=== PATIENT | female | born 1940 | race Caucasian/White ===

== ENCOUNTER 2017-05-19 19:35 | Inpatient (IN) | payer MEDICARE ==
--- NOTE | 2017-05-19 20:17 | CP.PCM.HP ---
History of Present Illness - History of Present Illness History of Present Illness: 77 y/o female with PMH DM, HTN, dyslipidemia, irregular heart beat , overweight , chronic back pain , chronic constipation was diagnosed with acute ischemic stroke 05/16/17 at [facility] after being admitted with dizziness, unstable gait . Patient now transferred to acute rehab for physical therapy. She feels a little better but still dizzy especially with minimal movement or ambulation, feeling tired and is constipated (last BM 4 days ago ). Denies any CP, SOB, palpitations, OMD orthopnea urinary symptoms. Allergies ; PCN PMH ; DM, HTN, dyslipidemia, irregular heart beat , overweight , stroke,chronic back pain , chronic constipation Medications; Atorvastatin, eliquist , ASA , cardizem, Valsartan, meclizine, Linzest, amitiza Surgery ; appendectomy, partial colon resection for abscess, pancreas surgery, cataract surgery and glaucoma Family history ; Mother had HTn, DM lood clots in [place]-- 55 y/o sister had CAD with stents, gait instability, DM, HTN, Asthma -- 56 y/o Social history ; originally from [place] , lives in [place] with her , has 2 children, stopped smoking 6 years ago, denies ETOH use and drugs Code status; Full ROs ; 14 point revie wof system negative except above Present on Admission - Present on Admission Any Indicators Present on Admission: No Review of Systems - Review of Systems All systems: reviewed and no additional remarkable complaints except Past Patient History - Infectious Disease Hx of Infectious Diseases: None - Tetanus Immunizations Tetanus Immunization: Unknown - Past Medical History & Family History Past Medical History?: Yes - Past Social History Smoking Status: Former Smoker Alcohol: None Drugs: Denies Home Situation {Lives}: With Family Domestic Violence: Negative Meds Allergies/Adverse Reactions: Allergies Allergy/AdvReac Type Severity Reaction Status Date / Time Penicillins Allergy Severe SHORTNESS Verified 05/19/17 19:42 OF BREATH Physical Exam - Constitutional Appears: Non-toxic, No Acute Distress Additional comments: overweight - Head Exam Head Exam: ATRAUMATIC, NORMAL INSPECTION, NORMOCEPHALIC - Eye Exam Eye Exam: EOMI, Normal appearance, PERRL Pupil Exam: NORMAL ACCOMODATION - ENT Exam ENT Exam: Mucous Membranes Moist, Normal Exam - Neck Exam Neck exam: Positive for: Full Rom, Normal Inspection - Respiratory Exam Respiratory Exam: Clear to Auscultation Bilateral, NORMAL BREATHING PATTERN. absent: Rales, Rhonchi, Wheezes - Cardiovascular Exam Cardiovascular Exam: Irregular Rhythm, +S1, +S2. absent: JVD - GI/Abdominal Exam GI & Abdominal Exam: Normal Bowel Sounds, Soft. absent: Distended, Guarding, Rebound, Tenderness - Rectal Exam Rectal Exam: Deferred - Extremities Exam Extremities exam: Positive for: full ROM, normal capillary refill, normal inspection, pedal pulses present. Negative for: calf tenderness, joint swelling , pedal edema - Back Exam Back exam: NORMAL INSPECTION - Neurological Exam Neurological exam: Alert, CN II-XII Intact, Oriented x3, Reflexes Normal Additional comments: dizzy - Psychiatric Exam Psychiatric exam: Normal Affect, Normal Mood - Skin Skin Exam: Dry, Warm Assessment & Plan - Assessment and Plan (Free Text) Assessment: 77 y/o female with PMH DM, HTN, dyslipidemia, irregular heart beat , overweight , chronic back pain , chronic constipation was diagnosed with acute ischemic stroke 05/16/17 at [facility] after being admitted with dizziness, unstable gait . Patient now transferred to acute rehab for physical therapy. She feels a little better but still dizzy especially with minimal movement or ambulation, feeling tired and is constipated (last BM 4 days ago ). Denies any CP, SOB, palpitations, OMD orthopnea urinary symptoms. 1. Acute CVA Admit to acute rehab for PT patient feels dizzy and has unstable gait physiatry consult resume ASA, eliquist , Statin 2. DM diabetic diet, Accuchecks, insulin coverage check Hgb A1c 3.HTN on Valsartan 4. Irregular heart beat/ afib ? Check EKG continue cardizem PO on eliquist 5. Chronic constipation on colace, lactulose Family can bring Linzest 6. Chronic back pain pain management PRN 7. DVT & GI prophylaxis Protonox SCD on eliquist
[2017-05-19] MEDS: Insulin Lispro (humaLOG) 100 Units/ml Inj SC SCH (22:00)
[2017-05-19 23:26] VITALS: BMI 34.0
[2017-05-20] MEDS: Insulin Lispro (humaLOG) 100 Units/ml Inj SC SCH ×5 (07:07→22:30)
[2017-05-20 07:53] LABS: HEMATOCRIT 39.3 % (34.0-47.0); MEAN CELL VOLUME 89.8 fl (81.0-99.0); MEAN CORPUSCULAR HEMOGLOBIN 30.1 pg (27.0-31.0); MEAN CORPUSCULAR HGB CONC 33.6 g/dL (33.0-37.0); RED CELL DISTRIBUTION WIDTH 14.8 % (11.5-14.5); WHITE BLOOD COUNT 10.7 K/uL (4.8-10.8)
[2017-05-20 08:06] LABS: BLOOD UREA NITROGEN 18 mg/dl (7-17); CALCIUM 9.2 mg/dL (8.4-10.2); CARBON DIOXIDE 32 mmol/L (22-30); CHLORIDE 98 mmol/L (98-107); GFR AFRICAN-AMERICAN > 60; GLUCOSE,RANDOM 176 mg/dL (65-105); POTASSIUM 4.4 MMOL/L (3.6-5.0); SODIUM 138 mmol/l (132-148)
[2017-05-20] MEDS: Pantoprazole 40 mg EC Tab PO SCH (08:52)
--- NOTE | 2017-05-20 10:30 | PCM.OPOC ---
Physiatry Overall Plan of Care - Overall Plan of Care Estimated Length of Stay in Weeks: 2 Rehab Impairment: Mobility, Gait, Balance, Coordination Etiologic Diagnosis: Cerebrovascular Accident Rehab/Medical Prognosis: Fair - Anticipated Interventions Physical Therapy:: Yes Occupational Therapy:: Yes Speech Therapy:: Yes Recreational Therapy:: Yes - Therapy Goals Bed Mobility: Independent Ambulation: Independent Functional Positional Changes:: Independent - Functional Outcomes Functional Outcomes: good - Discharge Plan Identification of Barriers to Discharge: Home Situation Discharge Destination: Home
--- NOTE | 2017-05-20 10:32 | CP.PCM.CON ---
History of Present Illness - History of Present Illness History of Present Illness: 77 year old female admitted for acute rehab after suffering a ischemic stroke , with other PMH of DM, HTn,dyslipidemia and irregular heart beat Review of Systems - Musculoskeletal Musculoskeletal: Abnormal Gait - Neurological Neurological: Abnormal Gait, Dizziness, Weakness Past Patient History - Infectious Disease Hx of Infectious Diseases: None - Tetanus Immunizations Tetanus Immunization: Unknown - Past Medical History & Family History Past Medical History?: Yes - Past Social History Smoking Status: Former Smoker Alcohol: None Drugs: Denies Home Situation {Lives}: With Family Domestic Violence: Negative - CARDIAC Hx Cardiac Disorders: Yes ((Denies hx. of cardiac stent)) Hx Hypertension: Yes Other/Comment: - Irregular heart beat. - Dyslipidemia - PULMONARY Hx Respiratory Disorders: No (Denies hx. of Asthma or COPD) - NEUROLOGICAL Hx Neurological Disorder: Yes HX Cerebrovascular Accident: Yes (05/16/17: Acute Ischemic Stroke) - HEENT Hx Cataracts: Yes (Cataract surgery (left eye)) Hx Glaucoma: Yes - ENDOCRINE/METABOLIC Hx Diabetes Mellitus Type 2: Yes - HEMATOLOGICAL/ONCOLOGICAL Hx AIDS: No Hx Human Immunodeficiency Virus (HIV): No - MUSCULOSKELETAL/RHEUMATOLOGICAL Hx Back Pain: Yes (Chronic back pain) - GASTROINTESTINAL Hx Constipation: Yes (Chronic constipation) - PSYCHIATRIC Hx Substance Use: No - SURGICAL HISTORY Hx Appendectomy: Yes Hx Cataract Extraction: Yes (Cataract surgery (left eye)) Other/Comment: - Partial colon resection for abscess (per dgt: 2/3 instestine removed). - Surgery of the pancreas. - - ANESTHESIA Hx Anesthesia: Yes Hx Anesthesia Reactions: No Hx Malignant Hyperthermia: No Meds Allergies/Adverse Reactions: Allergies Allergy/AdvReac Type Severity Reaction Status Date / Time Penicillins Allergy Severe SWELLING Verified 05/20/17 08:00 - Medications Medications: Current Medications Acetaminophen (Tylenol 325mg Tab) 650 mg PO Q6 PRN PRN Reason: Fever >100.4 F Last Admin: 05/20/17 08:50 Dose: 650 mg Acetaminophen (Tylenol 325mg Tab) 650 mg PO Q6 PRN PRN Reason: Pain, Mild (1-3) Apixaban (Eliquis) 5 mg PO BID [facility] PRN Reason: Protocol Last Admin: 05/20/17 08:52 Dose: 5 mg Aspirin (Aspirin Chewable) 81 mg PO DAILY [facility] Last Admin: 05/20/17 08:52 Dose: 81 mg Atorvastatin Calcium (Lipitor) 40 mg PO HS [facility] Last Admin: 05/19/17 22:31 Dose: Not Given Diltiazem HCl (Cardizem) 120 mg PO DAILY [facility] Last Admin: 05/20/17 09:54 Dose: Not Given Docusate Sodium (Colace) 100 mg PO BID PRN PRN Reason: Constipation Last Admin: 05/20/17 08:52 Dose: 100 mg Insulin Human Lispro (Humalog) 0 units SC [facility] PRN Reason: Protocol Last Admin: 05/20/17 07:07 Dose: 1 unit Lactulose (Enulose) 20 gm PO DAILY PRN PRN Reason: Constipation Meclizine HCl (Antivert) 25 mg PO BID [facility] Last Admin: 05/20/17 09:54 Dose: 25 mg Pantoprazole Sodium (Protonix Ec Tab) 40 mg PO DAILY [facility] Last Admin: 05/20/17 08:52 Dose: 40 mg Valsartan (Diovan) 320 mg PO DAILY [facility] Last Admin: 05/20/17 08:52 Dose: Not Given Physical Exam - Head Exam Head Exam: ATRAUMATIC, NORMAL INSPECTION, NORMOCEPHALIC - Eye Exam Eye Exam: EOMI, Normal appearance Pupil Exam: NORMAL ACCOMODATION, PERRL - ENT Exam ENT Exam: Mucous Membranes Moist, Normal Exam - Neck Exam Neck exam: Positive for: Normal Inspection - Respiratory Exam Respiratory Exam: Clear to Auscultation Bilateral, NORMAL BREATHING PATTERN - Cardiovascular Exam Cardiovascular Exam: REGULAR RHYTHM - GI/Abdominal Exam GI & Abdominal Exam: Normal Bowel Sounds - Rectal Exam Rectal Exam: NORMAL INSPECTION - Exam External exam: NORMAL EXTERNAL EXAM - Extremities Exam Extremities exam: Positive for: normal inspection Additional comments: problems with balance and gait anf coordination - Back Exam Back exam: NORMAL INSPECTION - Neurological Exam Neurological exam: Alert - Psychiatric Exam Psychiatric exam: Normal Affect, Normal Mood - Skin Skin Exam: Dry, Normal Color Results - Vital Signs Recent Vital Signs: Last Vital Signs Temp 97.5 F L 05/20/17 09:01 Pulse 120 H 05/20/17 09:01 Resp 20 05/20/17 09:01 BP 150/65 05/20/17 09:01 Pulse Ox 95 05/20/17 09:01 - Labs Result Diagrams: 05/20/17 07:00 05/20/17 07:00 Labs: Laboratory Results - last 24 hr 05/19/17 05/20/17 05/20/17 21:10 06:38 07:00 WBC 10.7 RBC 4.38 Hgb 13.2 Hct 39.3 MCV 89.8 MCH 30.1 MCHC 33.6 RDW 14.8 H Plt Count 154 Sodium Potassium Chloride Carbon Dioxide Anion Gap BUN Creatinine Est GFR ( Amer) Est GFR (Non-Af Amer) POC Glucose (mg/dL) 169 H 183 H Random Glucose Calcium 05/20/17 07:00 WBC RBC Hgb Hct MCV MCH MCHC RDW Plt Count Sodium 138 Potassium 4.4 Chloride 98 Carbon Dioxide 32 H Anion Gap 12 BUN 18 H Creatinine 1.0 Est GFR ( Amer) > 60 Est GFR (Non-Af Amer) 54 POC Glucose (mg/dL) Random Glucose 176 H Calcium 9.2 Assessment & Plan - Assessment and Plan (Free Text) Assessment: Problems of Cerebrovascular accident with PMH of DM, HT, Dyslipidemia and irregular heart beat. Plan for physical, occupational, rec and speech therapy. Goals to work on balance, strength, coordination. Goals for Modified independent Overall plan of care written. Covering for Dr. Marie
[2017-05-21] MEDS: Insulin Lispro (humaLOG) 100 Units/ml Inj SC SCH ×4 (07:36→22:05)
[2017-05-21] MEDS: Pantoprazole 40 mg EC Tab PO SCH (09:15)
[2017-05-21] MEDS: Bisacodyl 5mg EC Tab PO SCH (14:13)
[2017-05-22] MEDS: Insulin Lispro (humaLOG) 100 Units/ml Inj SC SCH ×4 (07:29→21:39)
[2017-05-22] MEDS: Bisacodyl 5mg EC Tab PO SCH (08:41)
[2017-05-22] MEDS: Pantoprazole 40 mg EC Tab PO SCH (08:41)
--- NOTE | 2017-05-22 12:22 | CP.PCM.PN ---
Subjective - Date & Time of Evaluation Date of Evaluation: 05/22/17 Time of Evaluation: 09:30 - Subjective Subjective: Patient was seen and examined at bedside. She is complaining of right sided intermittent headache when she wakes up in the morning. She says that Tylenol does improve the pain somewhat. It improves over the course of the day. She states she feels better but is still feeling dizzy with ambulation or with physical therapy. Her constipation has improved. Denies any chest pain, sob, palpitations today. Objective - Vital Signs/Intake and Output Vital Signs (last 24 hours): Temp Pulse Resp BP Pulse Ox 97.9 F 79 20 142/60 98 05/22/17 07:45 05/22/17 07:45 05/22/17 07:45 05/22/17 07:45 05/22/17 07:45 - Medications Medications: Current Medications Acetaminophen (Tylenol 325mg Tab) 650 mg PO Q6 PRN PRN Reason: Fever >100.4 F Last Admin: 05/20/17 08:50 Dose: 650 mg Acetaminophen (Tylenol 325mg Tab) 650 mg PO Q6 PRN PRN Reason: PAIN LEVEL 1-10 Last Admin: 05/22/17 08:40 Dose: 650 mg Apixaban (Eliquis) 5 mg PO BID [facility] PRN Reason: Protocol Last Admin: 05/22/17 08:41 Dose: 5 mg Aspirin (Aspirin Chewable) 81 mg PO DAILY [facility] Last Admin: 05/22/17 08:41 Dose: 81 mg Atorvastatin Calcium (Lipitor) 40 mg PO HS [facility] Last Admin: 05/21/17 21:00 Dose: 40 mg Bisacodyl (Dulcolax) 5 mg PO DAILY [facility] Last Admin: 05/22/17 08:41 Dose: 5 mg Diltiazem HCl (Cardizem) 120 mg PO DAILY [facility] Last Admin: 05/22/17 08:41 Dose: 120 mg Docusate Sodium (Colace) 100 mg PO BID PRN PRN Reason: Constipation Last Admin: 05/20/17 08:52 Dose: 100 mg Insulin Human Lispro (Humalog) 0 units SC [facility] PRN Reason: Protocol Last Admin: 05/22/17 11:58 Dose: 1 unit Lactulose (Enulose) 20 gm PO DAILY PRN PRN Reason: Constipation Last Admin: 05/21/17 09:14 Dose: 20 gm Meclizine HCl (Antivert) 25 mg PO BID [facility] Last Admin: 05/22/17 08:41 Dose: 25 mg Pantoprazole Sodium (Protonix Ec Tab) 40 mg PO DAILY [facility] Last Admin: 05/22/17 08:41 Dose: 40 mg Valsartan (Diovan) 320 mg PO DAILY [facility] Last Admin: 05/22/17 08:41 Dose: 320 mg - Labs Labs: 05/20/17 07:00 05/20/17 07:00 - Additional Findings Additional findings: Physical exam: Constitutional- cooperative, awake, alert. Head- NCAT, PERRL Eye- PERRL, normal accommodation ENT- normal exam, MMM. Neck- normal inspection, supple, no JVD Respiratory- CTAB, no wheezes rales rhonchi Cardiovascular- RRR, +S1, +S2 no MRG GI/Abdominal- normal bowel sounds, soft, no mass, no hsm Skin- warm, dry Extremities Exam- normal capillary refill, normal inspection Neurological Exam- alert, stable gait Psych- normal mood, normal affect Assessment and Plan - Assessment and Plan (Free Text) Plan: Assessment: 77 y/o female with PMH DM, HTN, dyslipidemia, irregular heart beat , overweight , chronic back pain , chronic constipation was diagnosed with acute ischemic stroke 05/16/17 at [facility] after being admitted with dizziness, unstable gait . Patient now transferred to acute rehab for physical therapy. Doing better overall today. Denies any CP, SOB, palpitations, OMD orthopnea urinary symptoms. 1. Acute CVA Admit to acute rehab for PT patient feels dizzy and has unstable gait physiatry consult resume ASA, eliquist , Statin 2. Bilateral carotid stenosis -- continue anticoagulation , ASa and statin patient to follow up after discharge for possible end arterectomy 3. DM diabetic diet, Accuchecks, insulin coverage check Hgb A1c 4.HTN on Valsartan Cardizem 5. 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 Chronic constipation- improved, patient had good BM 05/21 - Colace 100 mg po BID PRN - Lactulose PRN 7. Chronic back pain pain management PRN 8. DVT & GI prophylaxis Protonox SCD on eliquist
--- NOTE | 2017-05-22 12:32 | CARD ---
APPROVED REPORT EKG Measurement Heart [id number] <Conclusion> Atrial fibrillation with rapid ventricular response Anterior infarct, age undetermined Abnormal ECG
--- NOTE | 2017-05-22 14:39 | CP.PCM.PN ---
Subjective - Date & Time of Evaluation Date of Evaluation: 05/20/17 Time of Evaluation: 17:00 - Subjective Subjective: no acute complaints of pain Objective - Vital Signs/Intake and Output Vital Signs (last 24 hours): Temp Pulse Resp BP Pulse Ox 97.9 F 79 20 142/60 98 05/22/17 07:45 05/22/17 07:45 05/22/17 07:45 05/22/17 07:45 05/22/17 07:45 - Medications Medications: Current Medications Acetaminophen (Tylenol 325mg Tab) 650 mg PO Q6 PRN PRN Reason: Fever >100.4 F Last Admin: 05/20/17 08:50 Dose: 650 mg Acetaminophen (Tylenol 325mg Tab) 650 mg PO Q6 PRN PRN Reason: PAIN LEVEL 1-10 Last Admin: 05/22/17 08:40 Dose: 650 mg Apixaban (Eliquis) 5 mg PO BID [facility] PRN Reason: Protocol Last Admin: 05/22/17 08:41 Dose: 5 mg Aspirin (Aspirin Chewable) 81 mg PO DAILY [facility] Last Admin: 05/22/17 08:41 Dose: 81 mg Atorvastatin Calcium (Lipitor) 40 mg PO HS [facility] Last Admin: 05/21/17 21:00 Dose: 40 mg Bisacodyl (Dulcolax) 5 mg PO DAILY [facility] Last Admin: 05/22/17 08:41 Dose: 5 mg Diltiazem HCl (Cardizem) 120 mg PO DAILY [facility] Last Admin: 05/22/17 08:41 Dose: 120 mg Docusate Sodium (Colace) 100 mg PO BID PRN PRN Reason: Constipation Last Admin: 05/20/17 08:52 Dose: 100 mg Insulin Human Lispro (Humalog) 0 units SC [facility] PRN Reason: Protocol Last Admin: 05/22/17 11:58 Dose: 1 unit Lactulose (Enulose) 20 gm PO DAILY PRN PRN Reason: Constipation Last Admin: 05/21/17 09:14 Dose: 20 gm Meclizine HCl (Antivert) 25 mg PO BID [facility] Last Admin: 05/22/17 08:41 Dose: 25 mg Pantoprazole Sodium (Protonix Ec Tab) 40 mg PO DAILY [facility] Last Admin: 05/22/17 08:41 Dose: 40 mg Valsartan (Diovan) 320 mg PO DAILY [facility] Last Admin: 05/22/17 08:41 Dose: 320 mg - Labs Labs: 05/20/17 07:00 05/20/17 07:00 - Head Exam Head Exam: ATRAUMATIC, NORMAL INSPECTION, NORMOCEPHALIC - Eye Exam Eye Exam: EOMI, Normal appearance, PERRL Pupil Exam: NORMAL ACCOMODATION - ENT Exam ENT Exam: Mucous Membranes Moist, Normal Exam - Neck Exam Neck Exam: Normal Inspection - Respiratory Exam Respiratory Exam: NORMAL BREATHING PATTERN - Cardiovascular Exam Cardiovascular Exam: REGULAR RHYTHM - GI/Abdominal Exam GI & Abdominal Exam: Normal Bowel Sounds - Rectal Exam Rectal Exam: NORMAL INSPECTION - Exam External exam: NORMAL EXTERNAL EXAM - Extremities Exam Extremities Exam: Full ROM, Normal Capillary Refill - Back Exam Back Exam: NORMAL INSPECTION - Neurological Exam Neurological Exam: Alert, Awake Neuro motor strength exam: Left Upper Extremity: 3, Right Upper Extremity: 3, Left Lower Extremity: 3, Right Lower Extremity: 3 - Psychiatric Exam Psychiatric exam: Normal Affect, Normal Mood - Skin Skin Exam: Dry, Normal Color Assessment and Plan (1) CVA (cerebral vascular accident) Assessment & Plan: plan for pt, ot ,rec and speech therapy covering for Dr pacheco Status: Acute
--- NOTE | 2017-05-22 14:41 | CP.PCM.PN ---
Subjective - Date & Time of Evaluation Date of Evaluation: 05/22/17 Time of Evaluation: 14:00 - Subjective Subjective: no acute complaints getting therapy Objective - Vital Signs/Intake and Output Vital Signs (last 24 hours): Temp Pulse Resp BP Pulse Ox 97.9 F 79 20 142/60 98 05/22/17 07:45 05/22/17 07:45 05/22/17 07:45 05/22/17 07:45 05/22/17 07:45 - Medications Medications: Current Medications Acetaminophen (Tylenol 325mg Tab) 650 mg PO Q6 PRN PRN Reason: Fever >100.4 F Last Admin: 05/20/17 08:50 Dose: 650 mg Acetaminophen (Tylenol 325mg Tab) 650 mg PO Q6 PRN PRN Reason: PAIN LEVEL 1-10 Last Admin: 05/22/17 08:40 Dose: 650 mg Apixaban (Eliquis) 5 mg PO BID [facility] PRN Reason: Protocol Last Admin: 05/22/17 08:41 Dose: 5 mg Aspirin (Aspirin Chewable) 81 mg PO DAILY [facility] Last Admin: 05/22/17 08:41 Dose: 81 mg Atorvastatin Calcium (Lipitor) 40 mg PO HS [facility] Last Admin: 05/21/17 21:00 Dose: 40 mg Bisacodyl (Dulcolax) 5 mg PO DAILY [facility] Last Admin: 05/22/17 08:41 Dose: 5 mg Diltiazem HCl (Cardizem) 120 mg PO DAILY [facility] Last Admin: 05/22/17 08:41 Dose: 120 mg Docusate Sodium (Colace) 100 mg PO BID PRN PRN Reason: Constipation Last Admin: 05/20/17 08:52 Dose: 100 mg Insulin Human Lispro (Humalog) 0 units SC [facility] PRN Reason: Protocol Last Admin: 05/22/17 11:58 Dose: 1 unit Lactulose (Enulose) 20 gm PO DAILY PRN PRN Reason: Constipation Last Admin: 05/21/17 09:14 Dose: 20 gm Meclizine HCl (Antivert) 25 mg PO BID [facility] Last Admin: 05/22/17 08:41 Dose: 25 mg Pantoprazole Sodium (Protonix Ec Tab) 40 mg PO DAILY [facility] Last Admin: 05/22/17 08:41 Dose: 40 mg Valsartan (Diovan) 320 mg PO DAILY [facility] Last Admin: 05/22/17 08:41 Dose: 320 mg - Labs Labs: 05/20/17 07:00 05/20/17 07:00 - Head Exam Head Exam: ATRAUMATIC, NORMAL INSPECTION, NORMOCEPHALIC - Eye Exam Eye Exam: EOMI, Normal appearance, PERRL Pupil Exam: NORMAL ACCOMODATION - ENT Exam ENT Exam: Mucous Membranes Moist, Normal Exam - Neck Exam Neck Exam: Normal Inspection - Respiratory Exam Respiratory Exam: NORMAL BREATHING PATTERN - Cardiovascular Exam Cardiovascular Exam: REGULAR RHYTHM - GI/Abdominal Exam GI & Abdominal Exam: Soft, Normal Bowel Sounds - Rectal Exam Rectal Exam: NORMAL INSPECTION - Exam External exam: NORMAL EXTERNAL EXAM - Extremities Exam Extremities Exam: Full ROM, Normal Capillary Refill - Back Exam Back Exam: NORMAL INSPECTION - Neurological Exam Neurological Exam: Alert, Awake Neuro motor strength exam: Left Upper Extremity: 3, Right Upper Extremity: 3, Left Lower Extremity: 3, Right Lower Extremity: 3 Additional comments: problems with balance and coordination - Psychiatric Exam Psychiatric exam: Normal Affect, Normal Mood - Skin Skin Exam: Dry, Intact Assessment and Plan (1) CVA (cerebral vascular accident) Assessment & Plan: pt, ot, rec therpy coveing for Dr pacheco to do team conference on patient Status: Acute
[2017-05-23] MEDS: Insulin Lispro (humaLOG) 100 Units/ml Inj SC SCH ×4 (07:04→21:55)
[2017-05-23] MEDS: Pantoprazole 40 mg EC Tab PO SCH (08:48)
[2017-05-23] MEDS: Bisacodyl 5mg EC Tab PO SCH (08:48)
[2017-05-23] MEDS ORDERED: Apap-Butalbital-Caffeine 325-50-40mg Tab PO PRN (11:40)
[2017-05-23] MEDS ORDERED: Lidocaine 2% GEL TOP PRN (11:50)
--- NOTE | 2017-05-23 14:13 | US ---
PROCEDURE: Right lower extremity venous duplex Doppler. HISTORY: r/o dvt COMPARISON: None available. TECHNIQUE: Common femoral, superficial femoral, popliteal and posterior tibial veins were evaluated. Flow was assessed with color Doppler, compressibility, assessment of phasic flow and augmentation response. FINDINGS: COMMON FEMORAL VEIN: Unremarkable. SUPERFICIAL FEMORAL VEIN: Unremarkable. POPLITEAL VEIN: Unremarkable. POSTERIOR TIBIAL VEIN: Unremarkable. OTHER FINDINGS: Unremarkable saphenous vein. IMPRESSION: No evidence of deep venous thrombosis in the right lower extremity.
[2017-05-23] MEDS: AMITIZA 24 MCG PO SCH (17:04)
[2017-05-24] MEDS: Insulin Lispro (humaLOG) 100 Units/ml Inj SC SCH ×4 (07:02→22:32)
[2017-05-24] MEDS: Bisacodyl 5mg EC Tab PO SCH (08:06)
[2017-05-24] MEDS: Pantoprazole 40 mg EC Tab PO SCH (08:06)
[2017-05-24] MEDS: AMITIZA 24 MCG PO SCH ×2 (08:06→16:52)
--- NOTE | 2017-05-24 09:03 | PSY.TMCNF ---
Nursing - Vital Signs Vital Signs (Last 8 hours): Vital Signs 05/24/17 05/24/17 08:04 08:57 Temperature 97.7 F 97.2 F L Pulse Rate 89 90 Respiratory 18 19 Rate Blood Pressure 163/84 H 163/84 H O2 Sat by Pulse 100 95 Oximetry Pain: 0 - Medications/Other Issues Comment: Pt at moderate nutritional risk. goals: 1. Consume 75-100% at mealtimes. 2. Maintain good glycemic control:GLU:70-180mg/dl. Follow-up due on 05/27/2017 - Bladder Management Bladder Pattern: Normal Voiding Method: Bedpan - Bowel Management Bowel Pattern: Constipated - Goals/Time Frame Comments: Pt was seen awake and alert laying in bed. Pt agreeable to visit. Pt' s prefered language is gabonese; however, pt can understand and speak slovenian to answer questions. Pt was able to identify her leisure tasks such as watching television, cooking, cleaning, and enjoys playing bingo. Pt reported that before her was ill, she would play bingo. Pt stated that she does not have much leisure tasks because she cares for her who is ill at home. Pt stated that she will participate in leisure tasks when encouraged. Physical Therapy - Bed Mobility Bed Mobility: Moderate Assistance - Transfers Wheelchair to Mat: Moderate Assistance Sit to Stand: Moderate Assistance Comment: RW - Ambulation Level of Assistance: Minimal Assistance Distance (ft.): 12 Assistive Devices: Rolling Walker - Stair Negotiation Stairs: Level of Assistance: Not Tested - Standing Balance Static Stand: Moderate Assistance Dynamic Stand: Maximal Assistance - Pain Pain (assessed during therapy session): 0 Management Techniques: Medication Comment: pt denies pain - Insight/Carryover Insight/Carryover: Fair - Patient/Family Education Comment: therapy schedule, therapy goals, safety, POC, use of call syed, stroke recovery - Assessment/Plan Assessment: Pt is agreeable to participate in recreation therapy sessions. Pt's participation is limited by fatigue and decrease leisure interest. Pt would benefit from recreation therapy to improve leisure awareness level, attention to task, and diversion to decrease anxiety level. Pt enjoys watching gabonese movies during her free time. - Goals Timeframe: 7 days Goals: min A with bed/mat mobility. min A with transfers with RW. ambulate min A with RW x 50 feet. mod A to negotiate 3 4inch steps with B rails - Provider License Number: [id number] Occupational Therapy - Arousal/Attention/Orientation Patient Orientation: Person, Place, Time, Appropriate to Age, Appropriate to Situation - ADL/IADL Self Feeding: Set-up Help Grooming: Verbal Cues, Set-up Help, Minimal Assistance Bathing-Upper Extremity: Verbal Cues, Set-up Help, Minimal Assistance Bathing-Lower Extremity: Verbal Cues, Set-up Help, Moderate Assistance Dressing-Upper Extremity: Supervision, Verbal Cues, Set-up Help Dressing-Lower Extremity: Verbal Cues, Set-up Help, Moderate Assistance - Sitting Balance Static Sitting: Supervision Dynamic Sitting: Reaches across midline, Reaches out of base of support, Reaches within base of support, Minimal Assistance Comment: seated unsupported at edge of bed - Transfers Wheelchair to Bed Transfers: Verbal Cues, Set-up Help, Minimal Assistance, Moderate Assistance Toilet Transfers: Verbal Cues, Set-up Help, Minimal Assistance, Moderate Assistance Comment: shower transfers: min/mod assist and verbal cues - Wheelchair Management Level of Assistance: Verbal Cues, Set-up Help, Minimal Assistance Distance (ft.): 20 - Upper Extremity Status Right Upper Extremity Comment: AROM in BUEs is WFLS Left Upper Extremity Comment: AROM is WFLS un BUES - Pain Pain (assessed during therapy session): 0 Alleviating Techniques: Medication Comment: pt denies pain - Insight/Carryover Insight/Carryover: Fair - Patient/Family Education Comment: therapy schedule, therapy goals, safety, POC, use of call syed, stroke recovery - Assessment/Plan Assessment: Pt is agreeable to participate in recreation therapy sessions. Pt's participation is limited by fatigue and decrease leisure interest. Pt would benefit from recreation therapy to improve leisure awareness level, attention to task, and diversion to decrease anxiety level. Pt enjoys watching gabonese movies during her free time. - Goals Timeframe: 7 days Goals: min A with bed/mat mobility. min A with transfers with RW. ambulate min A with RW x 50 feet. mod A to negotiate 3 4inch steps with Jacqueline adam - Provider Therapist: LETI Byers/L License Number: [id number] Speech Therapy - Consult Information Patient on Program: Yes Medical Diagnosis: CVA Treatment Diagnosis: cognitive-linguistic deficits - Assessment Memory Impairment: Mild - Plan Assessment: Pt is agreeable to participate in recreation therapy sessions. Pt's participation is limited by fatigue and decrease leisure interest. Pt would benefit from recreation therapy to improve leisure awareness level, attention to task, and diversion to decrease anxiety level. Pt enjoys watching gabonese movies during her free time. Plan: Continue Speech/Language Therapy - Provider Therapist: Aster Villalta License Number: [id number] Recreational Therapy - Participation Participation: Monitors His/Her Own Leisure Time - Attendance Attendance: Daily - Activities Leisure Activities: Television - Socialization Level of Socialization: Initiates/interacts freely with care givers and peer - Diversional Time Diversional Time: television and movies in Armenian - Assessment Assessment/Plan: Pt is agreeable to participate in recreation therapy sessions. Pt's participation is limited by fatigue and decrease leisure interest. Pt would benefit from recreation therapy to improve leisure awareness level, attention to task, and diversion to decrease anxiety level. Pt enjoys watching gabonese movies during her free time. Problems Currently Limiting Participation: decrease leisure awareness level, decrease arousal level, language barrier, anxiety Goals and Time Frame: Pt will be encouraged to participate in 1:1 and group recreation therapy sessions 3-5x week to improve attention to task, arousal level, leisure awareness level, and diversion to decrease anxiety level. - Provider Therapist: Katie Polanco, [employer] #[id number] Nutrition - Current Diet Current Diet/ Supplement/ Feedings: Low consistent CHO heart healthy diet - Appetite Percent Meal Consumed: 50-74% - Assessment/Goals/Time Frame Assessment/Goals/Time Frame: Pt at moderate nutritional risk. goals: 1. Consume 75-100% at mealtimes. 2. Maintain good glycemic control:GLU:70-180mg/ dl. Follow-up due on 05/27/2017 - Provider Provider: Elizabeth Hughes RD Case Management - Discharge Plan Discharge Plan: Home with significant other/family Rehabilitation Plan - Treatment Plan Treatment Plan: Physical Therapy, Occupational Therapy, Speech, Dietary, Patient /Family Education - Recommendation Recommendation: Physical Therapy, Occupational Therapy, Speech, Dietary, Patient /Family Education - Discharge Plan Discharge to: Home
[2017-05-24] MEDS: Acyclovir 5% OINT 15 APPLIC/15 GM EXT SCH ×5 (10:35→22:31)
--- NOTE | 2017-05-24 11:16 | PN ---
PHYSIATRY PROGRESS NOTED DATE: SUBJECTIVE: The patient is feeling fine. No acute complaints. Some problems with itching and rash because of shingles. No acute other complaints at present. PHYSICAL EXAMINATION: VITAL SIGNS: Vitals are stable. NECK: Supple. CHEST: Symmetrical. HEART: Sounds S1 and S2. ABDOMEN: Abdominal area is benign. EXTREMITIES: No clubbing, cyanosis or edema. IMPRESSION: Acute cerebrovascular accident, diabetes, hypertension, chronic obstructive pulmonary disease, asthma. Plan for physical therapy, occupational, recreational and speech therapy. Treatment for the shingles for the skin. Monitor the rash. To consider isolation. Status post team conference for the patient. Covering for Dr. Marie. Benson Lazar MD
--- NOTE | 2017-05-24 12:02 | CP.PCM.PN ---
Subjective - Date & Time of Evaluation Date of Evaluation: 05/24/17 Time of Evaluation: 14:30 - Subjective Subjective: Patient seen and examined . Feeling better but still with dizziness AGOSTO to right side of the head on and off . Participating with PT. Hemodynamically stable, afebrile Objective - Vital Signs/Intake and Output Vital Signs (last 24 hours): Temp Pulse Resp BP Pulse Ox 97.2 F L 90 18 163/84 H 95 05/24/17 10:14 05/24/17 10:14 05/24/17 10:14 05/24/17 10:14 05/24/17 08:57 - Medications Medications: Current Medications Acetaminophen (Tylenol 325mg Tab) 650 mg PO Q6 PRN PRN Reason: Fever >100.4 F Last Admin: 05/20/17 08:50 Dose: 650 mg Acetaminophen (Tylenol 325mg Tab) 650 mg PO Q6 PRN PRN Reason: PAIN LEVEL 1-10 Last Admin: 05/23/17 11:10 Dose: 650 mg Acetaminophen/Butalbital/Caffeine (Fioricet) 1 tab PO Q4 PRN PRN Reason: Headache Acyclovir (Zovirax) 800 mg PO 5XD FADI PRN Reason: Protocol Last Admin: 05/24/17 08:06 Dose: 800 mg Acyclovir (Zovirax 5% Oint) 1 applic EXT Q3 [facility] Last Admin: 05/24/17 10:35 Dose: 1 applic Apixaban (Eliquis) 5 mg PO BID [facility] PRN Reason: Protocol Last Admin: 05/24/17 08:06 Dose: 5 mg Aspirin (Aspirin Chewable) 81 mg PO DAILY [facility] Last Admin: 05/24/17 08:06 Dose: 81 mg Atorvastatin Calcium (Lipitor) 40 mg PO HS [facility] Last Admin: 05/23/17 21:54 Dose: 40 mg Bisacodyl (Dulcolax) 5 mg PO DAILY [facility] Last Admin: 05/24/17 08:06 Dose: 5 mg Diltiazem HCl (Cardizem) 120 mg PO DAILY [facility] Last Admin: 05/24/17 08:06 Dose: 120 mg Docusate Sodium (Colace) 100 mg PO BID PRN PRN Reason: Constipation Last Admin: 05/23/17 16:41 Dose: 100 mg Home Med (Amitiza) 24 mcg PO BID [facility] Last Admin: 05/24/17 08:06 Dose: 24 mcg Insulin Human Lispro (Humalog) 0 units SC ACHS [facility] PRN Reason: Protocol Last Admin: 05/24/17 07:02 Dose: 1 unit Lactulose (Enulose) 20 gm PO DAILY PRN PRN Reason: Constipation Last Admin: 05/21/17 09:14 Dose: 20 gm Lidocaine HCl (Xylocaine 2%) 1 applic TOP BID PRN PRN Reason: Pain, moderate (4-7) Meclizine HCl (Antivert) 25 mg PO BID [facility] Last Admin: 05/24/17 08:06 Dose: 25 mg Pantoprazole Sodium (Protonix Ec Tab) 40 mg PO DAILY [facility] Last Admin: 05/24/17 08:06 Dose: 40 mg Temazepam (Restoril) 15 mg PO HS PRN PRN Reason: Insomnia Last Admin: 05/23/17 21:54 Dose: 15 mg Valsartan (Diovan) 320 mg PO DAILY [facility] Last Admin: 05/24/17 08:06 Dose: 320 mg - Labs Labs: 05/20/17 07:00 05/20/17 07:00 - Constitutional Appears: Non-toxic, No Acute Distress - Head Exam Head Exam: ATRAUMATIC, NORMAL INSPECTION, NORMOCEPHALIC - Eye Exam Eye Exam: EOMI, Normal appearance, PERRL Pupil Exam: NORMAL ACCOMODATION - ENT Exam ENT Exam: Mucous Membranes Moist, Normal Exam - Neck Exam Neck Exam: Full ROM, Normal Inspection - Respiratory Exam Respiratory Exam: Clear to Ausculation Bilateral, NORMAL BREATHING PATTERN. absent: Rales, Rhonchi, Wheezes - Cardiovascular Exam Cardiovascular Exam: REGULAR RHYTHM, RRR, +S1, +S2. absent: JVD - GI/Abdominal Exam GI & Abdominal Exam: Soft, Normal Bowel Sounds. absent: Distended, Guarding, Tenderness, Rebound - Rectal Exam Rectal Exam: Deferred - Extremities Exam Extremities Exam: Full ROM, Normal Capillary Refill, Normal Inspection. absent : Pedal Edema - Back Exam Back Exam: NORMAL INSPECTION - Neurological Exam Neurological Exam: Alert, Awake, CN II-XII Intact, Oriented x3 - Psychiatric Exam Psychiatric exam: Normal Affect, Normal Mood - Skin Skin Exam: Dry, Intact, Normal Color, Warm Assessment and Plan - Assessment and Plan (Free Text) Assessment: 77 y/o female with PMH DM, HTN, dyslipidemia, irregular heart beat , overweight , chronic back pain , chronic constipation was diagnosed with acute ischemic stroke 05/16/17 at [facility] after being admitted with dizziness, unstable gait.Patient now transferred to acute rehab for physical therapy. Doing better overall but still dizzy. Participating with PT. 1.Acute CVA Admit to acute rehab for PT patient feels dizzy and has unstable gait physiatry consult appreciated on ASA, eliquist , Statin meclizine for dizziness 2. Bilateral carotid stenosis 70 % continue anticoagulation , ASa and statin patient to follow up after discharge for possible end arterectomy 3. DM diabetic diet, Accuchecks, insulin coverage check Hgb A1c start metformin 500 mg po bid 4.HTN on Valsartan and Cardizem 5. 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 Chronic constipation on Amnitiza ,Colace 100 mg po BID PRN and Lactulose PRN 7. Chronic back pain pain management PRN 8. Shingles on Zovirax Po for 5 days contact isolation 9. DVT & GI prophylaxis Protonix SCD on eliquist
[2017-05-25] MEDS: Acyclovir 5% OINT 15 APPLIC/15 GM EXT SCH ×8 (01:03→21:50)
[2017-05-25] MEDS: Insulin Lispro (humaLOG) 100 Units/ml Inj SC SCH ×4 (07:02→22:04)
[2017-05-25] MEDS: AMITIZA 24 MCG PO SCH ×2 (08:08→17:02)
[2017-05-25] MEDS: Pantoprazole 40 mg EC Tab PO SCH (08:10)
[2017-05-25] MEDS: Bisacodyl 5mg EC Tab PO SCH (08:11)
[2017-05-26] MEDS: Acyclovir 5% OINT 15 APPLIC/15 GM EXT SCH ×8 (00:17→21:49)
[2017-05-26] MEDS: Insulin Lispro (humaLOG) 100 Units/ml Inj SC SCH ×4 (07:50→22:05)
--- NOTE | 2017-05-26 07:54 | CP.PCM.CON ---
History of Present Illness - History of Present Illness History of Present Illness: Pt is a 77 year old female admitted to [facility] following a CVA. Med history positive for HTN, DM, cardiac stent, asthma, COPD. Medications/Med history see medical record. Social History: Pt lives with her of 25+ years. Pt was previously and first . Pt has one biological child, one stepchild. She reported very positive relationships with family members and two grandchildren. Children reside in [place]. Ed/Voc: pt raised in [facility], pt is a college graduate and studied accounting. Psych history denied, pt denied a history of alc/sub abuse. She worked as a bookeeper in the . Pt spoke of current concern for her described as "sick" and herself. She spoke of her limited homemaker services and need for healing/recovery to assist . Anxiety regarding her current condition/status expressed along with dysphoria , interventions presented to reduce distress. MSE" Pt alert, oriented x3, relevant/coherent, no psychosis, affect constricted , mood dsysphoric/anxious, no si no hi ideation. Dx: Adjustment Dx- Plan: Continued Sup therapy Past Patient History - Infectious Disease Hx of Infectious Diseases: None - Tetanus Immunizations Tetanus Immunization: Unknown - Past Medical History & Family History Past Medical History?: Yes - Past Social History Smoking Status: Former Smoker Alcohol: None Drugs: Denies Home Situation {Lives}: With Family Domestic Violence: Negative - CARDIAC Hx Cardiac Disorders: Yes ((Denies hx. of cardiac stent)) Hx Hypertension: Yes Other/Comment: - Irregular heart beat. - Dyslipidemia - PULMONARY Hx Respiratory Disorders: No (Denies hx. of Asthma or COPD) - NEUROLOGICAL Hx Neurological Disorder: Yes HX Cerebrovascular Accident: Yes (05/16/17: Acute Ischemic Stroke) - HEENT Hx Cataracts: Yes (Cataract surgery (left eye)) Hx Glaucoma: Yes - ENDOCRINE/METABOLIC Hx Diabetes Mellitus Type 2: Yes - HEMATOLOGICAL/ONCOLOGICAL Hx AIDS: No Hx Human Immunodeficiency Virus (HIV): No - MUSCULOSKELETAL/RHEUMATOLOGICAL Hx Back Pain: Yes (Chronic back pain) - GASTROINTESTINAL Hx Constipation: Yes (Chronic constipation) - PSYCHIATRIC Hx Substance Use: No - SURGICAL HISTORY Hx Appendectomy: Yes Hx Cataract Extraction: Yes (Cataract surgery (left eye)) Other/Comment: - Partial colon resection for abscess (per dgt: 2/3 instestine removed). - Surgery of the pancreas. - - ANESTHESIA Hx Anesthesia: Yes Hx Anesthesia Reactions: No Hx Malignant Hyperthermia: No Meds Allergies/Adverse Reactions: Allergies Allergy/AdvReac Type Severity Reaction Status Date / Time Penicillins Allergy Severe SWELLING Verified 05/20/17 08:00 - Medications Medications: Current Medications Acetaminophen (Tylenol 325mg Tab) 650 mg PO Q6 PRN PRN Reason: Fever >100.4 F Last Admin: 05/20/17 08:50 Dose: 650 mg Acetaminophen (Tylenol 325mg Tab) 650 mg PO Q6 PRN PRN Reason: PAIN LEVEL 1-10 Last Admin: 05/23/17 11:10 Dose: 650 mg Acetaminophen/Butalbital/Caffeine (Fioricet) 1 tab PO Q4 PRN PRN Reason: Headache Acyclovir (Zovirax) 800 mg PO 5XD [facility] PRN Reason: Protocol Last Admin: 05/26/17 05:33 Dose: 800 mg Acyclovir (Zovirax 5% Oint) 1 applic EXT Q3 [facility] Last Admin: 05/26/17 05:33 Dose: 1 applic Apixaban (Eliquis) 5 mg PO BID [facility] PRN Reason: Protocol Last Admin: 05/25/17 17:02 Dose: 5 mg Aspirin (Aspirin Chewable) 81 mg PO DAILY [facility] Last Admin: 05/25/17 08:10 Dose: 81 mg Atorvastatin Calcium (Lipitor) 40 mg PO HS [facility] Last Admin: 05/25/17 21:50 Dose: 40 mg Bisacodyl (Dulcolax) 5 mg PO DAILY [facility] Last Admin: 05/25/17 08:11 Dose: 5 mg Diltiazem HCl (Cardizem) 120 mg PO DAILY [facility] Last Admin: 05/25/17 08:11 Dose: 120 mg Docusate Sodium (Colace) 100 mg PO BID PRN PRN Reason: Constipation Last Admin: 05/23/17 16:41 Dose: 100 mg Home Med (Amitiza) 24 mcg PO BID [facility] Last Admin: 05/25/17 17:02 Dose: 24 mcg Insulin Human Lispro (Humalog) 0 units SC ACHS [facility] PRN Reason: Protocol Last Admin: 05/25/17 22:04 Dose: Not Given Lactulose (Enulose) 20 gm PO DAILY PRN PRN Reason: Constipation Last Admin: 05/21/17 09:14 Dose: 20 gm Lidocaine HCl (Xylocaine 2%) 1 applic TOP BID PRN PRN Reason: Pain, moderate (4-7) Meclizine HCl (Antivert) 25 mg PO BID [facility] Last Admin: 05/25/17 17:02 Dose: 25 mg Metformin HCl (Glucophage) 500 mg PO BIDWM [facility] Pantoprazole Sodium (Protonix Ec Tab) 40 mg PO DAILY [facility] Last Admin: 05/25/17 08:10 Dose: 40 mg Temazepam (Restoril) 15 mg PO HS PRN PRN Reason: Insomnia Last Admin: 05/23/17 21:54 Dose: 15 mg Valsartan (Diovan) 320 mg PO DAILY [facility] Last Admin: 05/25/17 08:11 Dose: 320 mg Results - Vital Signs Recent Vital Signs: Last Vital Signs Temp 98.1 F 05/25/17 20:10 Pulse 79 05/25/17 20:10 Resp 20 05/25/17 20:10 BP 147/65 05/25/17 20:10 Pulse Ox 97 05/25/17 20:10 - Labs Result Diagrams: 05/20/17 07:00 05/20/17 07:00 Labs: Laboratory Results - last 24 hr 05/25/17 05/25/17 05/25/17 06:50 12:12 15:54 POC Glucose (mg/dL) 236 H 191 H Hemoglobin A1c 7.7 H 05/25/17 05/26/17 20:50 05:36 POC Glucose (mg/dL) 215 H 203 H Hemoglobin A1c
[2017-05-26] MEDS: Pantoprazole 40 mg EC Tab PO SCH (08:30)
[2017-05-26] MEDS: Bisacodyl 5mg EC Tab PO SCH (08:31)
[2017-05-26] MEDS: AMITIZA 24 MCG PO SCH ×2 (08:31→17:05)
--- NOTE | 2017-05-26 10:31 | CP.PCM.PN ---
Subjective - Date & Time of Evaluation Date of Evaluation: 05/26/17 Time of Evaluation: 10:27 - Subjective Subjective: patient seen and examined at bedside status post CVAat rehabilitation for unstable gait. Patient continues to complain of mild dizziness. Participating in physical therapy well, denies chest pain, denies shortness of breath at rest or on exertion. She is hemodynamically stable and in no acute distress. Objective - Vital Signs/Intake and Output Vital Signs (last 24 hours): Temp Pulse Resp BP Pulse Ox 97.5 F L 95 H 18 158/70 H 97 05/26/17 08:47 05/26/17 08:47 05/26/17 08:47 05/26/17 08:47 05/26/17 08:47 Physical exam: Constitutional- cooperative, awake, alert. Head- NCAT, PERRL Eye- PERRL, normal accommodation ENT- normal exam, MMM. Neck- normal inspection, supple, no JVD Respiratory- CTAB, no wheezes rales rhonchi Cardiovascular- RRR, +S1, +S2 no MRG GI/Abdominal- normal bowel sounds, soft, no mass, no hsm Skin- warm, dry Extremities Exam- normal capillary refill, normal inspection Neurological Exam- alert, unstable gait Psych- normal mood, normal affect - Medications Medications: Current Medications Acetaminophen (Tylenol 325mg Tab) 650 mg PO Q6 PRN PRN Reason: Fever >100.4 F Last Admin: 05/20/17 08:50 Dose: 650 mg Acetaminophen (Tylenol 325mg Tab) 650 mg PO Q6 PRN PRN Reason: PAIN LEVEL 1-10 Last Admin: 05/23/17 11:10 Dose: 650 mg Acetaminophen/Butalbital/Caffeine (Fioricet) 1 tab PO Q4 PRN PRN Reason: Headache Acyclovir (Zovirax) 800 mg PO 5XD [facility] PRN Reason: Protocol Last Admin: 05/26/17 08:32 Dose: 800 mg Acyclovir (Zovirax 5% Oint) 1 applic EXT Q3 [facility] Last Admin: 05/26/17 10:19 Dose: Not Given Apixaban (Eliquis) 5 mg PO BID [facility] PRN Reason: Protocol Last Admin: 05/26/17 08:33 Dose: 5 mg Aspirin (Aspirin Chewable) 81 mg PO DAILY [facility] Last Admin: 05/26/17 08:32 Dose: 81 mg Atorvastatin Calcium (Lipitor) 40 mg PO HS [facility] Last Admin: 05/25/17 21:50 Dose: 40 mg Bisacodyl (Dulcolax) 5 mg PO DAILY [facility] Last Admin: 05/26/17 08:31 Dose: 5 mg Diltiazem HCl (Cardizem) 120 mg PO DAILY [facility] Last Admin: 05/26/17 08:32 Dose: 120 mg Docusate Sodium (Colace) 100 mg PO BID PRN PRN Reason: Constipation Last Admin: 05/26/17 08:30 Dose: 100 mg Home Med (Amitiza) 24 mcg PO BID [facility] Last Admin: 05/26/17 08:31 Dose: 24 mcg Insulin Human Lispro (Humalog) 0 units SC [facility] PRN Reason: Protocol Last Admin: 05/26/17 07:50 Dose: 2 unit Lactulose (Enulose) 20 gm PO DAILY PRN PRN Reason: Constipation Last Admin: 05/21/17 09:14 Dose: 20 gm Lidocaine HCl (Xylocaine 2%) 1 applic TOP BID PRN PRN Reason: Pain, moderate (4-7) Meclizine HCl (Antivert) 25 mg PO BID [facility] Last Admin: 05/26/17 08:31 Dose: 25 mg Metformin HCl (Glucophage) 500 mg PO BIDWM [facility] Last Admin: 05/26/17 08:32 Dose: 500 mg Pantoprazole Sodium (Protonix Ec Tab) 40 mg PO DAILY [facility] Last Admin: 05/26/17 08:30 Dose: 40 mg Temazepam (Restoril) 15 mg PO HS PRN PRN Reason: Insomnia Last Admin: 05/23/17 21:54 Dose: 15 mg Valsartan (Diovan) 320 mg PO DAILY [facility] Last Admin: 05/26/17 08:31 Dose: 320 mg - Labs Labs: 05/20/17 07:00 05/20/17 07:00 Assessment and Plan - Assessment and Plan (Free Text) Plan: 77 y/o female with PMH DM, HTN, dyslipidemia, irregular heart beat , overweight , chronic back pain , chronic constipation was diagnosed with acute ischemic stroke 05/16/17 at [facility] after being admitted with dizziness, unstable gait.Patient now transferred to acute rehab for physical therapy. Doing better overall but still dizzy. Participating with PT. 1.Acute CVA Admit to acute rehab for PT patient feels dizzy and has unstable gait, continues to have these symptoms today physiatry consult appreciated on ASA, Eliquis, Statin meclizine for dizziness 2. Bilateral carotid stenosis 70 % continue anticoagulation , ASA and statin patient to follow up after discharge for possible end arterectomy 3. DM diabetic diet, Accuchecks, insulin coverage check Hgb A1c start metformin 500 mg po bid 4.HTN on Valsartan and Cardizem 5. 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 Chronic constipation on Amitiza, Colace 100 mg po BID PRN and Lactulose PRN 7. Chronic back pain pain management PRN 8. Shingles on Zovirax Po for 5 days contact isolation 9. DVT & GI prophylaxis Protonix SCD on eliquis Fioricet PRN HEADACHES Temazepam for insomnia
[2017-05-27] MEDS: Acyclovir 5% OINT 15 APPLIC/15 GM EXT SCH ×8 (01:03→21:16)
[2017-05-27] MEDS: Insulin Lispro (humaLOG) 100 Units/ml Inj SC SCH ×4 (07:24→21:15)
[2017-05-27] MEDS: AMITIZA 24 MCG PO SCH ×2 (08:41→16:27)
[2017-05-27] MEDS: Pantoprazole 40 mg EC Tab PO SCH (08:42)
[2017-05-27] MEDS: Bisacodyl 5mg EC Tab PO SCH (08:42)
--- NOTE | 2017-05-27 12:26 | CP.PCM.PN ---
Subjective - Date & Time of Evaluation Date of Evaluation: 05/26/17 Time of Evaluation: 21:00 - Subjective Subjective: no acute complaints of any pain or discomfort Objective - Vital Signs/Intake and Output Vital Signs (last 24 hours): Temp Pulse Resp BP Pulse Ox 98.2 F 93 H 20 131/67 96 05/27/17 07:51 05/27/17 08:18 05/27/17 07:51 05/27/17 07:51 05/27/17 08:18 - Medications Medications: Current Medications Acetaminophen (Tylenol 325mg Tab) 650 mg PO Q6 PRN PRN Reason: Fever >100.4 F Last Admin: 05/20/17 08:50 Dose: 650 mg Acetaminophen (Tylenol 325mg Tab) 650 mg PO Q6 PRN PRN Reason: PAIN LEVEL 1-10 Last Admin: 05/23/17 11:10 Dose: 650 mg Acetaminophen/Butalbital/Caffeine (Fioricet) 1 tab PO Q4 PRN PRN Reason: Headache Acyclovir (Zovirax) 800 mg PO 5XD [facility] PRN Reason: Protocol Last Admin: 05/27/17 12:16 Dose: 800 mg Acyclovir (Zovirax 5% Oint) 1 applic EXT Q3 [facility] Last Admin: 05/27/17 12:16 Dose: 1 applic Apixaban (Eliquis) 5 mg PO BID [facility] PRN Reason: Protocol Last Admin: 05/27/17 08:41 Dose: 5 mg Aspirin (Aspirin Chewable) 81 mg PO DAILY [facility] Last Admin: 05/27/17 08:42 Dose: 81 mg Atorvastatin Calcium (Lipitor) 40 mg PO HS [facility] Last Admin: 05/26/17 21:50 Dose: 40 mg Bisacodyl (Dulcolax) 5 mg PO DAILY [facility] Last Admin: 05/27/17 08:42 Dose: 5 mg Diltiazem HCl (Cardizem) 120 mg PO DAILY [facility] Last Admin: 05/27/17 08:42 Dose: 120 mg Docusate Sodium (Colace) 100 mg PO BID PRN PRN Reason: Constipation Last Admin: 05/26/17 08:30 Dose: 100 mg Home Med (Amitiza) 24 mcg PO BID [facility] Last Admin: 05/27/17 08:41 Dose: 24 mcg Insulin Human Lispro (Humalog) 0 units SC [facility] PRN Reason: Protocol Last Admin: 05/27/17 12:16 Dose: 1 unit Lactulose (Enulose) 20 gm PO DAILY PRN PRN Reason: Constipation Last Admin: 05/21/17 09:14 Dose: 20 gm Lidocaine HCl (Xylocaine 2%) 1 applic TOP BID PRN PRN Reason: Pain, moderate (4-7) Meclizine HCl (Antivert) 25 mg PO BID [facility] Last Admin: 05/27/17 08:42 Dose: 25 mg Metformin HCl (Glucophage) 500 mg PO BIDWM [facility] Last Admin: 05/27/17 08:41 Dose: 500 mg Pantoprazole Sodium (Protonix Ec Tab) 40 mg PO DAILY [facility] Last Admin: 05/27/17 08:42 Dose: 40 mg Temazepam (Restoril) 15 mg PO HS PRN PRN Reason: Insomnia Last Admin: 05/23/17 21:54 Dose: 15 mg Valsartan (Diovan) 320 mg PO DAILY [facility] Last Admin: 05/27/17 08:42 Dose: 320 mg - Labs Labs: 05/20/17 07:00 05/20/17 07:00 - Head Exam Head Exam: ATRAUMATIC, NORMAL INSPECTION, NORMOCEPHALIC - Eye Exam Eye Exam: EOMI, Normal appearance Pupil Exam: NORMAL ACCOMODATION, PERRL - ENT Exam ENT Exam: Mucous Membranes Moist - Neck Exam Neck Exam: Normal Inspection - Respiratory Exam Respiratory Exam: Clear to Ausculation Bilateral, NORMAL BREATHING PATTERN - Cardiovascular Exam Cardiovascular Exam: REGULAR RHYTHM - GI/Abdominal Exam GI & Abdominal Exam: Normal Bowel Sounds - Rectal Exam Rectal Exam: NORMAL INSPECTION - Exam External exam: NORMAL EXTERNAL EXAM - Extremities Exam Extremities Exam: Full ROM, Normal Capillary Refill, Normal Inspection - Back Exam Back Exam: NORMAL INSPECTION - Neurological Exam Neurological Exam: Alert, Awake Neuro motor strength exam: Left Upper Extremity: 3, Right Upper Extremity: 3, Left Lower Extremity: 3, Right Lower Extremity: 3 Additional comments: balance problems - Psychiatric Exam Psychiatric exam: Normal Affect, Normal Mood - Skin Skin Exam: Dry, Normal Color Assessment and Plan (1) CVA (cerebral vascular accident) Assessment & Plan: plan for physical, occupational, rec and speech therapy covering for Dr. Marie to return on monday monitor swallowing, skin, bowel Status: Acute
[2017-05-28] MEDS: Acyclovir 5% OINT 15 APPLIC/15 GM EXT SCH ×8 (00:10→21:40)
[2017-05-28] MEDS: Insulin Lispro (humaLOG) 100 Units/ml Inj SC SCH ×4 (07:00→21:39)
[2017-05-28] MEDS: AMITIZA 24 MCG PO SCH ×2 (08:27→16:40)
[2017-05-28] MEDS: Bisacodyl 5mg EC Tab PO SCH (08:31)
[2017-05-28] MEDS: Pantoprazole 40 mg EC Tab PO SCH (08:31)
[2017-05-29] MEDS: Acyclovir 5% OINT 15 APPLIC/15 GM EXT SCH ×8 (00:13→23:32)
[2017-05-29] MEDS: Insulin Lispro (humaLOG) 100 Units/ml Inj SC SCH ×4 (07:00→22:00)
[2017-05-29] MEDS: AMITIZA 24 MCG PO SCH ×2 (08:45→16:58)
[2017-05-29] MEDS: Pantoprazole 40 mg EC Tab PO SCH (08:46)
[2017-05-29] MEDS: Bisacodyl 5mg EC Tab PO SCH (08:49)
--- NOTE | 2017-05-29 12:18 | CP.PCM.PN ---
Subjective - Date & Time of Evaluation Date of Evaluation: 05/29/17 Time of Evaluation: 12:17 - Subjective Subjective: PT SEEN EXAMINED BEDSIDE FOR CVA, PARTICIPATING WITH PT WELL. NO COMPLAINTS NAD HD STABLE Objective - Vital Signs/Intake and Output Vital Signs (last 24 hours): Temp Pulse Resp BP Pulse Ox 97.9 F 93 H 20 176/98 H 93 L 05/29/17 10:00 05/29/17 10:00 05/29/17 10:00 05/29/17 10:00 05/29/17 10:00 Intake and Output: Physical exam: Constitutional- cooperative, awake, alert. Head- NCAT, PERRL Eye- PERRL, normal accommodation ENT- normal exam, MMM. Neck- normal inspection, supple, no JVD Respiratory- CTAB, no wheezes rales rhonchi Cardiovascular- RRR, +S1, +S2 no MRG GI/Abdominal- normal bowel sounds, soft, no mass, no hsm Skin- warm, dry Extremities Exam- normal capillary refill, normal inspection Neurological Exam- alert, AWAKE Psych- normal mood, normal affect - Medications Medications: Current Medications Acetaminophen (Tylenol 325mg Tab) 650 mg PO Q6 PRN PRN Reason: Fever >100.4 F Last Admin: 05/20/17 08:50 Dose: 650 mg Acetaminophen (Tylenol 325mg Tab) 650 mg PO Q6 PRN PRN Reason: PAIN LEVEL 1-10 Last Admin: 05/23/17 11:10 Dose: 650 mg Acetaminophen/Butalbital/Caffeine (Fioricet) 1 tab PO Q4 PRN PRN Reason: Headache Acyclovir (Zovirax) 800 mg PO 5XD [facility] PRN Reason: Protocol Last Admin: 05/29/17 08:46 Dose: 800 mg Acyclovir (Zovirax 5% Oint) 1 applic EXT Q3 [facility] Last Admin: 05/29/17 07:00 Dose: 1 applic Apixaban (Eliquis) 5 mg PO BID [facility] PRN Reason: Protocol Last Admin: 05/29/17 08:45 Dose: 5 mg Aspirin (Aspirin Chewable) 81 mg PO DAILY [facility] Last Admin: 05/29/17 08:46 Dose: 81 mg Atorvastatin Calcium (Lipitor) 40 mg PO HS [facility] Last Admin: 05/28/17 21:38 Dose: 40 mg Bisacodyl (Dulcolax) 5 mg PO DAILY [facility] Last Admin: 05/29/17 08:49 Dose: 5 mg Calcium Carbonate (Oscal) 500 mg PO BIDWM PRN PRN Reason: Heartburn Last Admin: 05/29/17 08:46 Dose: 500 mg Diltiazem HCl (Cardizem) 120 mg PO DAILY [facility] Last Admin: 05/29/17 08:46 Dose: 120 mg Docusate Sodium (Colace) 100 mg PO BID PRN PRN Reason: Constipation Last Admin: 05/26/17 08:30 Dose: 100 mg Home Med (Amitiza) 24 mcg PO BID [facility] Last Admin: 05/29/17 08:45 Dose: 24 mcg Insulin Human Lispro (Humalog) 0 units SC [facility] PRN Reason: Protocol Last Admin: 05/29/17 07:00 Dose: 1 unit Lactulose (Enulose) 20 gm PO DAILY PRN PRN Reason: Constipation Last Admin: 05/21/17 09:14 Dose: 20 gm Lidocaine HCl (Xylocaine 2%) 1 applic TOP BID PRN PRN Reason: Pain, moderate (4-7) Meclizine HCl (Antivert) 25 mg PO BID [facility] Last Admin: 05/29/17 08:48 Dose: 25 mg Metformin HCl (Glucophage) 500 mg PO BIDWM [facility] Last Admin: 05/29/17 08:46 Dose: 500 mg Pantoprazole Sodium (Protonix Ec Tab) 40 mg PO DAILY [facility] Last Admin: 05/29/17 08:46 Dose: 40 mg Temazepam (Restoril) 15 mg PO HS PRN PRN Reason: Insomnia Last Admin: 05/23/17 21:54 Dose: 15 mg Valsartan (Diovan) 320 mg PO DAILY [facility] Last Admin: 05/29/17 08:49 Dose: 320 mg - Labs Labs: 05/20/17 07:00 05/20/17 07:00 Assessment and Plan - Assessment and Plan (Free Text) Plan: 77 y/o female with PMH DM, HTN, dyslipidemia, irregular heart beat , overweight , chronic back pain , chronic constipation was diagnosed with acute ischemic stroke 05/16/17 at [facility] [place] after being admitted with dizziness, unstable gait.Patient now transferred to acute rehab for physical therapy. Doing better overall but still dizzy. Participating with PT. HD stable, NAD. 1.Acute CVA Admit to acute rehab for PT patient feels dizzy and has unstable gait, continues to have these symptoms today, imprving with PT physiatry consult appreciated on ASA, Eliquis, Statin meclizine for dizziness 2. Bilateral carotid stenosis 70 % continue anticoagulation , ASA and statin patient to follow up after discharge for possible end arterectomy 3. DM diabetic diet, Accuchecks, insulin coverage check Hgb A1c start metformin 500 mg po bid 4.HTN on Valsartan and Cardizem 5. 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 Chronic constipation on Amitiza, Colace 100 mg po BID PRN and Lactulose PRN 7. Chronic back pain pain management PRN 8. Shingles on Zovirax Po for 5 days contact isolation 9. DVT & GI prophylaxis Protonix SCD on eliquis Fioricet PRN HEADACHES Temazepam for insomnia
--- NOTE | 2017-05-29 18:37 | CP.PCM.PN ---
Subjective - Date & Time of Evaluation Date of Evaluation: 05/29/17 Time of Evaluation: 18:36 - Subjective Subjective: Patient seen in room doing well denies pain feels left LE is not doing as well as she would like at this point ambulating 30' continue current care to maximize outcome Objective - Vital Signs/Intake and Output Vital Signs (last 24 hours): Temp Pulse Resp BP Pulse Ox 97.9 F 93 H 20 176/98 H 93 L 05/29/17 10:00 05/29/17 10:00 05/29/17 10:00 05/29/17 10:00 05/29/17 10:00 - Medications Medications: Current Medications Acetaminophen (Tylenol 325mg Tab) 650 mg PO Q6 PRN PRN Reason: Fever >100.4 F Last Admin: 05/20/17 08:50 Dose: 650 mg Acetaminophen (Tylenol 325mg Tab) 650 mg PO Q6 PRN PRN Reason: PAIN LEVEL 1-10 Last Admin: 05/23/17 11:10 Dose: 650 mg Acetaminophen/Butalbital/Caffeine (Fioricet) 1 tab PO Q4 PRN PRN Reason: Headache Acyclovir (Zovirax) 800 mg PO 5XD [facility] PRN Reason: Protocol Last Admin: 05/29/17 16:57 Dose: 800 mg Acyclovir (Zovirax 5% Oint) 1 applic EXT Q3 [facility] Last Admin: 05/29/17 16:54 Dose: 1 applic Apixaban (Eliquis) 5 mg PO BID [facility] PRN Reason: Protocol Last Admin: 05/29/17 16:57 Dose: 5 mg Aspirin (Aspirin Chewable) 81 mg PO DAILY [facility] Last Admin: 05/29/17 08:46 Dose: 81 mg Atorvastatin Calcium (Lipitor) 40 mg PO HS [facility] Last Admin: 05/28/17 21:38 Dose: 40 mg Bisacodyl (Dulcolax) 5 mg PO DAILY [facility] Last Admin: 05/29/17 08:49 Dose: 5 mg Calcium Carbonate (Oscal) 500 mg PO BIDWM PRN PRN Reason: Heartburn Last Admin: 05/29/17 08:46 Dose: 500 mg Diltiazem HCl (Cardizem) 120 mg PO DAILY [facility] Last Admin: 05/29/17 08:46 Dose: 120 mg Docusate Sodium (Colace) 100 mg PO BID PRN PRN Reason: Constipation Last Admin: 05/29/17 16:55 Dose: 100 mg Home Med (Amitiza) 24 mcg PO BID [facility] Last Admin: 05/29/17 16:58 Dose: 24 mcg Insulin Human Lispro (Humalog) 0 units SC [facility] PRN Reason: Protocol Last Admin: 05/29/17 16:55 Dose: 1 unit Lactulose (Enulose) 20 gm PO DAILY PRN PRN Reason: Constipation Last Admin: 05/21/17 09:14 Dose: 20 gm Lidocaine HCl (Xylocaine 2%) 1 applic TOP BID PRN PRN Reason: Pain, moderate (4-7) Meclizine HCl (Antivert) 25 mg PO BID [facility] Last Admin: 05/29/17 16:57 Dose: 25 mg Metformin HCl (Glucophage) 500 mg PO BIDWM [facility] Last Admin: 05/29/17 16:56 Dose: 500 mg Pantoprazole Sodium (Protonix Ec Tab) 40 mg PO DAILY [facility] Last Admin: 05/29/17 08:46 Dose: 40 mg Temazepam (Restoril) 15 mg PO HS PRN PRN Reason: Insomnia Last Admin: 05/23/17 21:54 Dose: 15 mg Valsartan (Diovan) 320 mg PO DAILY [facility] Last Admin: 05/29/17 08:49 Dose: 320 mg - Labs Labs: 05/20/17 07:00 05/20/17 07:00
[2017-05-30] MEDS: Acyclovir 5% OINT 15 APPLIC/15 GM EXT SCH ×8 (02:00→22:17)
[2017-05-30] MEDS: Insulin Lispro (humaLOG) 100 Units/ml Inj SC SCH ×4 (07:55→22:00)
[2017-05-30] MEDS: AMITIZA 24 MCG PO SCH ×2 (08:30→17:16)
[2017-05-30] MEDS: Pantoprazole 40 mg EC Tab PO SCH (08:32)
[2017-05-30] MEDS: Bisacodyl 5mg EC Tab PO SCH (08:32)
--- NOTE | 2017-05-30 13:23 | PSY.TMCNF ---
Nursing - Vital Signs Vital Signs (Last 8 hours): Vital Signs 05/30/17 05/30/17 09:00 10:00 Temperature 98.2 F 97.3 F L Pulse Rate 99 H 103 H Respiratory 21 22 Rate Blood Pressure 157/66 H 152/73 H O2 Sat by Pulse 97 Oximetry Pain: 0 - Precautions: Isolation: Contact - Medications/Other Issues Comment: Shingles on left buttock healing - Consults Comment: -Dr. Larios-Gibilisco - Physiatry. -Dr. Elizondo - Psychology - Skin Incision Site: dry blisters on buttocks Incision: Reddened Incision Line Treatment: Reddened blisters on bilateral buttocks. Left open to air. - Toileting Toileting: Moderate Assistance - Bladder Management Bladder Pattern: Normal Voiding Method: Toilet Bladder Management: Supervision Frequency of Accidents: 0 - Bowel Management Bowel Pattern: Normal Bowel Management: Supervision Frequency of Accidents: 0 - Transfers Transfers: Moderate Assistance - ADL's ADL's: Moderate Assistance - Pain Management Comments: Tylenol 650 mg PRN - Patient/Family Teaching Comments: Contact isolation, Zovirax, Safety precautions - Goals/Time Frame Comments: Per multidisciplinary care plans and goals - Provider Provider: Grazyna CANADAN RN CRRN Physical Therapy - Bed Mobility Bed Mobility: Contact Guard, Minimal Assistance, Moderate Assistance Comment: rolling, sit to supine: CG/min A. supine to sit: min/mod A - Transfers Wheelchair to Mat: Verbal Cues, Contact Guard, Minimal Assistance Sit to Stand: Verbal Cues, Contact Guard, Minimal Assistance Comment: RW with VCs for sequencing and postural control - Ambulation Level of Assistance: Verbal Cues, Minimal Assistance Distance (ft.): 30 Assistive Devices: Rolling Walker Orthoses: n/a Comment: -30 feet, RW, level surface. -requires cues for improved hip extension and closer distance to walker to prevent forward flexion. -patient uses BUE support to lean on walker for support. -improved pattern with intermittent use of increased BLE flexion during swing; patient with altered RLE motions including reduced step length and at times very rigid patterning during swing phase. -patient requests frequent rest breaks and reports she is very tired and unable to ambulate increased distances as she could do last week - Stair Negotiation Stairs: Level of Assistance: Moderate Assistance Number of Stairs: 2 Stairs: Assistive Devices: Left Handrail, Right Handrail Comment: -2 6 inch training steps with b rails with mod A - Standing Balance Static Stand: Contact Guard Assist Dynamic Stand: Contact Guard Assist, Minimal Assistance - Pain Pain (assessed during therapy session): 0 Management Techniques: Medication - Insight/Carryover Insight/Carryover: Fair - Patient/Family Education Comment: -Ongoing for adls, functional mobility/transfers and w/c management; further training needed to improve carryover and safety. -work simplification/ energy conservation strategies. -breathing strategies. -educated on OT/rehab goals. -pt needs additional traisning to imprve caryover and safety with adls, functional transfers and mobility using adaptive/safety strategies. - Assessment/Plan Assessment: Pt is a 77 year old female with dx: acute CVA. *Precautions: falls( w/c alarm), cardiac, anxiety, bouts of dizziness(monitor vitals). Pt limited by B impaired AROM/strength & endurance ariel. in BUE/shoulders, impaired standing & sitting balance/tolerance, impaired activity tolerance/endurance, impaired overall strength, impaired safety strategies, ++anxiety---which affects function in self care, functional transfers/mobiility and Iadls. Pt will continue to benefit skilled OT to address functional above limitations to maximize overall function/safety in self care, transfers/mobility and Iadls using adaptive/compensatory strategies, + caregiver ed, DME needs assessment. * NOTE:Greatest limiting factor is pt's psychological state-depressed mood and anxiety regarding functional status, 's care. Pt will benefit from psychology/psychiatry consullt for mood and adjustment to changes in functional status, coping strategies. Pt fatiques easily and need frequent rest breaks. Pt continues to make steady gains in adls, transfers and mobilty. *Goal: Intermittent S for adls transfers/mobility and Iadls with assistive devices prn. - Goals Timeframe: 8 days Goals: -Grooming: I after setup seated. -Upper body dressing/bathing: I after setup seated. -Lower body dressing/bathing: CG/Minimal assist and verbal cues with assistive devices. -Toileting: Close S/CG and verbal cues with use of grab bar & RW. -w/c management: propel w/c 150 feet with Distant Supervision, manage B brakes with mod I. -Increase BUE strengh to 4+/5 throughout for improve adls/transfer and mobility - Provider License Number: [id number] Occupational Therapy - Arousal/Attention/Orientation Patient Orientation: Person, Place, Time, Appropriate to Age, Appropriate to Situation - ADL/IADL Self Feeding: Set-up Help Grooming: Set-up Help Bathing-Upper Extremity: Minimal Assistance Bathing-Lower Extremity: Minimal Assistance Dressing-Upper Extremity: Supervision - Sitting Balance Static Sitting: Independent without upper extremity support Dynamic Sitting: Reaches across midline, Reaches out of base of support, Reaches within base of support, Requires supervision Comment: seated at edge of bed - Transfers Wheelchair to Bed Transfers: Verbal Cues, Set-up Help, Minimal Assistance Toilet Transfers: Verbal Cues, Set-up Help, Minimal Assistance Comment: -shower transfers: min/mod assist and verbal cues. -pt needs prompting /re-direction for anxiety and negative talk management - Wheelchair Management Level of Assistance: Supervision, Verbal Cues, Set-up Help Distance (ft.): 100 - Upper Extremity Status Right Upper Extremity Comment: AROM in BUEs is WFLS, strength 4/5 Left Upper Extremity Comment: AROM is WFLS un BUES, strength 4/5 - Pain Pain (assessed during therapy session): 0 Alleviating Techniques: Medication - Insight/Carryover Insight/Carryover: Fair - Patient/Family Education Comment: -Ongoing for adls, functional mobility/transfers and w/c management; further training needed to improve carryover and safety. -work simplification/ energy conservation strategies. -breathing strategies. -educated on OT/rehab goals. -pt needs additional traisning to imprve caryover and safety with adls, functional transfers and mobility using adaptive/safety strategies. - Assessment/Plan Assessment: Pt is a 77 year old female with dx: acute CVA. *Precautions: falls( w/c alarm), cardiac, anxiety, bouts of dizziness(monitor vitals). Pt limited by B impaired AROM/strength & endurance ariel. in BUE/shoulders, impaired standing & sitting balance/tolerance, impaired activity tolerance/endurance, impaired overall strength, impaired safety strategies, ++anxiety---which affects function in self care, functional transfers/mobiility and Iadls. Pt will continue to benefit skilled OT to address functional above limitations to maximize overall function/safety in self care, transfers/mobility and Iadls using adaptive/compensatory strategies, + caregiver ed, DME needs assessment. * NOTE:Greatest limiting factor is pt's psychological state-depressed mood and anxiety regarding functional status, 's care. Pt will benefit from psychology/psychiatry consullt for mood and adjustment to changes in functional status, coping strategies. Pt fatiques easily and need frequent rest breaks. Pt continues to make steady gains in adls, transfers and mobilty. *Goal: Intermittent S for adls transfers/mobility and Iadls with assistive devices prn. - Goals Timeframe: 8 days Goals: -Grooming: I after setup seated. -Upper body dressing/bathing: I after setup seated. -Lower body dressing/bathing: CG/Minimal assist and verbal cues with assistive devices. -Toileting: Close S/CG and verbal cues with use of grab bar & RW. -w/c management: propel w/c 150 feet with Distant Supervision, manage B brakes with mod I. -Increase BUE strengh to 4+/5 throughout for improve adls/transfer and mobility - Provider Therapist: Tiana Tinoco OTR/L License Number: [id number] Speech Therapy - Consult Information Patient on Program: Yes Medical Diagnosis: CVA Treatment Diagnosis: mild cognitive deficits - Assessment Memory Impairment: Mild - Plan Assessment: Pt is a 77 year old female with dx: acute CVA. *Precautions: falls( w/c alarm), cardiac, anxiety, bouts of dizziness(monitor vitals). Pt limited by B impaired AROM/strength & endurance ariel. in BUE/shoulders, impaired standing & sitting balance/tolerance, impaired activity tolerance/endurance, impaired overall strength, impaired safety strategies, ++anxiety---which affects function in self care, functional transfers/mobiility and Iadls. Pt will continue to benefit skilled OT to address functional above limitations to maximize overall function/safety in self care, transfers/mobility and Iadls using adaptive/compensatory strategies, + caregiver ed, DME needs assessment. * NOTE:Greatest limiting factor is pt's psychological state-depressed mood and anxiety regarding functional status, 's care. Pt will benefit from psychology/psychiatry consullt for mood and adjustment to changes in functional status, coping strategies. Pt fatiques easily and need frequent rest breaks. Pt continues to make steady gains in adls, transfers and mobilty. *Goal: Intermittent S for adls transfers/mobility and Iadls with assistive devices prn. - Provider Therapist: Fanny Trevino License Number: [id number] Recreational Therapy - Participation Participation: Participates in Individual and/or Group Sessions, Monitors His/ Her Own Leisure Time - Attendance Attendance: Daily - Activities Leisure Activities: Television - Socialization Level of Socialization: Initiates/interacts freely with care givers and peer - Diversional Time Diversional Time: likes to watch movies or television shows in guamanian - Assessment Assessment/Plan: Pt is a 77 year old female with dx: acute CVA. *Precautions: falls(w/c alarm), cardiac, anxiety, bouts of dizziness(monitor vitals). Pt limited by B impaired AROM/strength & endurance ariel. in BUE/shoulders, impaired standing & sitting balance/tolerance, impaired activity tolerance/endurance, impaired overall strength, impaired safety strategies, ++anxiety---which affects function in self care, functional transfers/mobiility and Iadls. Pt will continue to benefit skilled OT to address functional above limitations to maximize overall function/safety in self care, transfers/mobility and Iadls using adaptive/compensatory strategies, + caregiver ed, DME needs assessment. * NOTE:Greatest limiting factor is pt's psychological state-depressed mood and anxiety regarding functional status, 's care. Pt will benefit from psychology/psychiatry consullt for mood and adjustment to changes in functional status, coping strategies. Pt fatiques easily and need frequent rest breaks. Pt continues to make steady gains in adls, transfers and mobilty. *Goal: Intermittent S for adls transfers/mobility and Iadls with assistive devices prn. - Provider Therapist: Katie Polanco, CINEMA OPERATOR #[id number] Nutrition - Current Diet Current Diet/ Supplement/ Feedings: heart healthy low consistent CHO - Appetite Percent Meal Consumed: 50-74% - Comments Comments: Contact isolation, Zovirax, Safety precautions - Assessment/Goals/Time Frame Assessment/Goals/Time Frame: Shingles on left buttock healing - Provider Provider: Elizabeth Hughes RD Case Management - Psychosocial Assessment Support Systems: Lives in a Senior Building with . Has supportive son João and daughter Haydee (P) [phone] Psychological Interventions/Needs: Alert and oriented x3. Emotional support for adjustment to situation and is concerned for her who also has health issues. Offered psychology consult with Dr Elizondo and she is agreeable. Discharge Concerns: Currently recieves 4 hrs of HHS/week. Lives with who needs attention Patient/Family Meeting: Met with patient and discussed Rehab protocol,her progress in therapy thus far and goal attainment. Intervention/Goal/Outcome:: Goal: Overall Intermittent Supervision - Discharge Plan Discharge Plan: Home with services Home Services: To be determined Comment: Equipment for home to be determined - Provider Provider: Diane Brooke RNreliability engineer Plan - Treatment Plan Treatment Plan: Physical Therapy, Occupational Therapy, Dietary, Wound Care, Patient/Family Education - Discharge Plan Estimated Date of Discharge: 06/03/17 Discharge to: Home
--- NOTE | 2017-05-30 13:56 | CP.PCM.PN ---
Subjective - Date & Time of Evaluation Date of Evaluation: 05/30/17 Time of Evaluation: 13:55 - Subjective Subjective: Patient seen in room not happy that she cannot walk well yet in therapies but only doing 30' She will likely need KENNEDY at this point denies pain or sob continue current care Objective - Vital Signs/Intake and Output Vital Signs (last 24 hours): Temp Pulse Resp BP Pulse Ox 97.3 F L 103 H 22 152/73 H 97 05/30/17 10:00 05/30/17 10:00 05/30/17 10:00 05/30/17 10:00 05/30/17 10:00 - Medications Medications: Current Medications Acetaminophen (Tylenol 325mg Tab) 650 mg PO Q6 PRN PRN Reason: Fever >100.4 F Last Admin: 05/20/17 08:50 Dose: 650 mg Acetaminophen (Tylenol 325mg Tab) 650 mg PO Q6 PRN PRN Reason: PAIN LEVEL 1-10 Last Admin: 05/23/17 11:10 Dose: 650 mg Acetaminophen/Butalbital/Caffeine (Fioricet) 1 tab PO Q4 PRN PRN Reason: Headache Acyclovir (Zovirax) 800 mg PO 5XD FADI PRN Reason: Protocol Last Admin: 05/30/17 13:01 Dose: 800 mg Acyclovir (Zovirax 5% Oint) 1 applic EXT Q3 [facility]ADI Last Admin: 05/30/17 13:00 Dose: 1 applic Apixaban (Eliquis) 5 mg PO BID [facility]ADI PRN Reason: Protocol Last Admin: 05/30/17 08:32 Dose: 5 mg Aspirin (Aspirin Chewable) 81 mg PO DAILY [facility]ADI Last Admin: 05/30/17 08:32 Dose: 81 mg Atorvastatin Calcium (Lipitor) 40 mg PO HS [facility]ADI Last Admin: 05/29/17 21:32 Dose: 40 mg Bisacodyl (Dulcolax) 5 mg PO DAILY [facility]ADI Last Admin: 05/30/17 08:32 Dose: 5 mg Calcium Carbonate (Oscal) 500 mg PO BIDWM PRN PRN Reason: Heartburn Last Admin: 05/30/17 11:30 Dose: 500 mg Diltiazem HCl (Cardizem) 120 mg PO DAILY [facility]ADI Last Admin: 05/30/17 08:33 Dose: 120 mg Docusate Sodium (Colace) 100 mg PO BID PRN PRN Reason: Constipation Last Admin: 05/29/17 16:55 Dose: 100 mg Home Med (Amitiza) 24 mcg PO BID [facility] Last Admin: 05/30/17 08:30 Dose: 24 mcg Insulin Human Lispro (Humalog) 0 units SC ACHS [facility]ADI PRN Reason: Protocol Last Admin: 05/30/17 12:00 Dose: 3 unit Lactulose (Enulose) 20 gm PO DAILY PRN PRN Reason: Constipation Last Admin: 05/21/17 09:14 Dose: 20 gm Lidocaine HCl (Xylocaine 2%) 1 applic TOP BID PRN PRN Reason: Pain, moderate (4-7) Meclizine HCl (Antivert) 25 mg PO BID [facility] Last Admin: 05/30/17 08:32 Dose: 25 mg Metformin HCl (Glucophage) 500 mg PO BIDWM [facility] Last Admin: 05/30/17 08:30 Dose: 500 mg Pantoprazole Sodium (Protonix Ec Tab) 40 mg PO DAILY [facility] Last Admin: 05/30/17 08:32 Dose: 40 mg Temazepam (Restoril) 15 mg PO HS PRN PRN Reason: Insomnia Last Admin: 05/23/17 21:54 Dose: 15 mg Valsartan (Diovan) 320 mg PO DAILY [facility] Last Admin: 05/30/17 08:33 Dose: 320 mg - Labs Labs: 05/20/17 07:00 05/20/17 07:00
--- NOTE | 2017-05-30 14:27 | CP.PCM.CON ---
History of Present Illness - History of Present Illness History of Present Illness: Pt seen for supportive therapy 2:08-2:25. Pt discussed discharge to sub acute on Sat and need for continued recovery. Pt spoke of gains thus far and need for increased gains. Pt discussed financial tensions/worry, frustration with limited services and concern for her future. Support provided and strategies reviewed to reduce distress. Plan: continued sup therapy Past Patient History - Infectious Disease Hx of Infectious Diseases: None - Tetanus Immunizations Tetanus Immunization: Unknown - Past Medical History & Family History Past Medical History?: Yes - Past Social History Smoking Status: Former Smoker Alcohol: None Drugs: Denies Home Situation {Lives}: With Family Domestic Violence: Negative - CARDIAC Hx Cardiac Disorders: Yes ((Denies hx. of cardiac stent)) Hx Hypertension: Yes Other/Comment: - Irregular heart beat. - Dyslipidemia - PULMONARY Hx Respiratory Disorders: No (Denies hx. of Asthma or COPD) - NEUROLOGICAL Hx Neurological Disorder: Yes HX Cerebrovascular Accident: Yes (05/16/17: Acute Ischemic Stroke) - HEENT Hx Cataracts: Yes (Cataract surgery (left eye)) Hx Glaucoma: Yes - ENDOCRINE/METABOLIC Hx Diabetes Mellitus Type 2: Yes - HEMATOLOGICAL/ONCOLOGICAL Hx AIDS: No Hx Human Immunodeficiency Virus (HIV): No - MUSCULOSKELETAL/RHEUMATOLOGICAL Hx Back Pain: Yes (Chronic back pain) - GASTROINTESTINAL Hx Constipation: Yes (Chronic constipation) - PSYCHIATRIC Hx Substance Use: No - SURGICAL HISTORY Hx Appendectomy: Yes Hx Cataract Extraction: Yes (Cataract surgery (left eye)) Other/Comment: - Partial colon resection for abscess (per dgt: 2/3 instestine removed). - Surgery of the pancreas. - - ANESTHESIA Hx Anesthesia: Yes Hx Anesthesia Reactions: No Hx Malignant Hyperthermia: No Meds Allergies/Adverse Reactions: Allergies Allergy/AdvReac Type Severity Reaction Status Date / Time Penicillins Allergy Severe SWELLING Verified 05/20/17 08:00 - Medications Medications: Current Medications Acetaminophen (Tylenol 325mg Tab) 650 mg PO Q6 PRN PRN Reason: Fever >100.4 F Last Admin: 05/20/17 08:50 Dose: 650 mg Acetaminophen (Tylenol 325mg Tab) 650 mg PO Q6 PRN PRN Reason: PAIN LEVEL 1-10 Last Admin: 05/23/17 11:10 Dose: 650 mg Acetaminophen/Butalbital/Caffeine (Fioricet) 1 tab PO Q4 PRN PRN Reason: Headache Acyclovir (Zovirax) 800 mg PO 5XD FADI PRN Reason: Protocol Last Admin: 05/30/17 13:01 Dose: 800 mg Acyclovir (Zovirax 5% Oint) 1 applic EXT Q3 [facility] Last Admin: 05/30/17 13:00 Dose: 1 applic Apixaban (Eliquis) 5 mg PO BID [facility]ADI PRN Reason: Protocol Last Admin: 05/30/17 08:32 Dose: 5 mg Aspirin (Aspirin Chewable) 81 mg PO DAILY [facility] Last Admin: 05/30/17 08:32 Dose: 81 mg Atorvastatin Calcium (Lipitor) 40 mg PO HS [facility] Last Admin: 05/29/17 21:32 Dose: 40 mg Bisacodyl (Dulcolax) 5 mg PO DAILY [facility] Last Admin: 05/30/17 08:32 Dose: 5 mg Calcium Carbonate (Oscal) 500 mg PO BIDWM PRN PRN Reason: Heartburn Last Admin: 05/30/17 11:30 Dose: 500 mg Diltiazem HCl (Cardizem) 120 mg PO DAILY [facility] Last Admin: 05/30/17 08:33 Dose: 120 mg Docusate Sodium (Colace) 100 mg PO BID PRN PRN Reason: Constipation Last Admin: 05/29/17 16:55 Dose: 100 mg Home Med (Amitiza) 24 mcg PO BID [facility] Last Admin: 05/30/17 08:30 Dose: 24 mcg Insulin Human Lispro (Humalog) 0 units SC ACHS [facility] PRN Reason: Protocol Last Admin: 05/30/17 12:00 Dose: 3 unit Lactulose (Enulose) 20 gm PO DAILY PRN PRN Reason: Constipation Last Admin: 05/21/17 09:14 Dose: 20 gm Lidocaine HCl (Xylocaine 2%) 1 applic TOP BID PRN PRN Reason: Pain, moderate (4-7) Meclizine HCl (Antivert) 25 mg PO BID [facility] Last Admin: 05/30/17 08:32 Dose: 25 mg Metformin HCl (Glucophage) 500 mg PO BIDWM [facility] Last Admin: 05/30/17 08:30 Dose: 500 mg Pantoprazole Sodium (Protonix Ec Tab) 40 mg PO DAILY [facility] Last Admin: 05/30/17 08:32 Dose: 40 mg Temazepam (Restoril) 15 mg PO HS PRN PRN Reason: Insomnia Last Admin: 05/23/17 21:54 Dose: 15 mg Valsartan (Diovan) 320 mg PO DAILY [facility]I Last Admin: 05/30/17 08:33 Dose: 320 mg Results - Vital Signs Recent Vital Signs: Last Vital Signs Temp 97.3 F L 05/30/17 10:00 Pulse 103 H 05/30/17 10:00 Resp 22 05/30/17 10:00 BP 152/73 H 05/30/17 10:00 Pulse Ox 97 05/30/17 10:00 - Labs Result Diagrams: 05/20/17 07:00 05/20/17 07:00 Labs: Laboratory Results - last 24 hr 05/29/17 05/29/17 05/30/17 16:34 20:42 05:39 POC Glucose (mg/dL) 187 H 198 H 200 H 05/30/17 11:34 POC Glucose (mg/dL) 256 H
[2017-05-31] MEDS: Acyclovir 5% OINT 15 APPLIC/15 GM EXT SCH ×8 (01:50→22:09)
[2017-05-31] MEDS: Insulin Lispro (humaLOG) 100 Units/ml Inj SC SCH ×4 (07:10→22:12)
[2017-05-31] MEDS: AMITIZA 24 MCG PO SCH ×2 (08:12→17:11)
[2017-05-31] MEDS: Bisacodyl 5mg EC Tab PO SCH (08:13)
[2017-05-31] MEDS: Pantoprazole 40 mg EC Tab PO SCH (08:14)
--- NOTE | 2017-05-31 12:01 | CP.PCM.PN ---
Subjective - Date & Time of Evaluation Date of Evaluation: 05/31/17 Time of Evaluation: 11:54 - Subjective Subjective: PT SEEN EXAMINED BEDSIDE FOR CVA, COMPLAINS OF TACHYCARDIA. HX AFIB, WILL OBTAIN REPEAT EKG. HR 73-113. PERMISSIBLE <110. WILL ADD BB IF CONT UNCONTROLLED. HD STABLE NAD. Objective - Vital Signs/Intake and Output Vital Signs (last 24 hours): Temp Pulse Resp BP Pulse Ox 97.3 F L 115 H 22 117/56 L 96 05/31/17 08:18 05/31/17 09:36 05/31/17 08:18 05/31/17 09:36 05/31/17 08:18 - Medications Medications: Current Medications Acetaminophen (Tylenol 325mg Tab) 650 mg PO Q6 PRN PRN Reason: Fever >100.4 F Last Admin: 05/20/17 08:50 Dose: 650 mg Acetaminophen (Tylenol 325mg Tab) 650 mg PO Q6 PRN PRN Reason: PAIN LEVEL 1-10 Last Admin: 05/23/17 11:10 Dose: 650 mg Acetaminophen/Butalbital/Caffeine (Fioricet) 1 tab PO Q4 PRN PRN Reason: Headache Last Admin: 05/31/17 09:22 Dose: 1 tab Acyclovir (Zovirax) 800 mg PO 5XD [facility]ADI PRN Reason: Protocol Last Admin: 05/31/17 08:13 Dose: 800 mg Acyclovir (Zovirax 5% Oint) 1 applic EXT Q3 [facility]ADI Last Admin: 05/31/17 09:25 Dose: 1 applic Apixaban (Eliquis) 5 mg PO BID [facility]ADI PRN Reason: Protocol Last Admin: 05/31/17 08:13 Dose: 5 mg Aspirin (Aspirin Chewable) 81 mg PO DAILY [facility]ADI Last Admin: 05/31/17 08:13 Dose: 81 mg Atorvastatin Calcium (Lipitor) 40 mg PO HS [facility]ADI Last Admin: 05/30/17 21:59 Dose: 40 mg Bisacodyl (Dulcolax) 5 mg PO DAILY [facility]ADI Last Admin: 05/31/17 08:13 Dose: 5 mg Calcium Carbonate (Oscal) 500 mg PO BIDWM PRN PRN Reason: Heartburn Last Admin: 05/30/17 11:30 Dose: 500 mg Diltiazem HCl (Cardizem) 120 mg PO DAILY [facility]I Last Admin: 05/31/17 08:13 Dose: 120 mg Docusate Sodium (Colace) 100 mg PO BID PRN PRN Reason: Constipation Last Admin: 05/29/17 16:55 Dose: 100 mg Home Med (Amitiza) 24 mcg PO BID [facility] Last Admin: 05/31/17 08:12 Dose: 24 mcg Insulin Human Lispro (Humalog) 0 units SC ACHS [facility] PRN Reason: Protocol Last Admin: 05/31/17 07:10 Dose: 2 unit Lactulose (Enulose) 20 gm PO DAILY PRN PRN Reason: Constipation Last Admin: 05/21/17 09:14 Dose: 20 gm Lidocaine HCl (Xylocaine 2%) 1 applic TOP BID PRN PRN Reason: Pain, moderate (4-7) Meclizine HCl (Antivert) 25 mg PO BID [facility] Last Admin: 05/31/17 08:13 Dose: 25 mg Metformin HCl (Glucophage) 500 mg PO BIDWM [facility] Last Admin: 05/31/17 08:13 Dose: 500 mg Pantoprazole Sodium (Protonix Ec Tab) 40 mg PO DAILY [facility] Last Admin: 05/31/17 08:14 Dose: 40 mg Temazepam (Restoril) 15 mg PO HS PRN PRN Reason: Insomnia Last Admin: 05/23/17 21:54 Dose: 15 mg Valsartan (Diovan) 320 mg PO DAILY [facility] Last Admin: 05/31/17 08:13 Dose: 320 mg - Labs Labs: 05/20/17 07:00 05/20/17 07:00 - Constitutional Appears: Non-toxic, No Acute Distress - Head Exam Head Exam: ATRAUMATIC, NORMOCEPHALIC - Eye Exam Eye Exam: Normal appearance, PERRL Pupil Exam: NORMAL ACCOMODATION - ENT Exam ENT Exam: Mucous Membranes Moist, Normal Oropharynx - Neck Exam Neck Exam: Full ROM, Normal Inspection - Respiratory Exam Respiratory Exam: Clear to Ausculation Bilateral, NORMAL BREATHING PATTERN. absent: Wheezes - Cardiovascular Exam Cardiovascular Exam: REGULAR RHYTHM, +S1, +S2 - GI/Abdominal Exam GI & Abdominal Exam: Soft, Normal Bowel Sounds. absent: Tenderness - Extremities Exam Extremities Exam: Normal Capillary Refill. absent: Calf Tenderness - Back Exam Back Exam: absent: CVA tenderness (L), CVA tenderness (R) - Neurological Exam Neurological Exam: Alert, Awake - Psychiatric Exam Psychiatric exam: Normal Affect, Normal Mood - Skin Skin Exam: Dry, Warm Assessment and Plan - Assessment and Plan (Free Text) Plan: PT SEEN EXAMINED BEDSIDE FOR CVA, COMPLAINS OF TACHYCARDIA. HX AFIB, WILL OBTAIN REPEAT EKG. HR 73-113. PERMISSIBLE <110. WILL ADD BB IF CONT UNCONTROLLED. HD STABLE NAD. 77 y/o female with PMH DM, HTN, dyslipidemia, irregular heart beat , overweight , chronic back pain , chronic constipation was diagnosed with acute ischemic stroke 05/16/[address] [facility] after being admitted with dizziness, unstable gait.Patient now transferred to acute rehab for physical therapy. Doing better overall but still dizzy. Participating with PT. 05/31/17 TACHY 73-113. repeat EKG, add BB if uncontrolled. 1.Acute CVA Admit to acute rehab for PT patient feels dizzy and has unstable gait, continues to have these symptoms today, imprving with PT physiatry consult appreciated on ASA, Eliquis, Statin meclizine for dizziness 2. Bilateral carotid stenosis 70 % continue anticoagulation , ASA and statin patient to follow up after discharge for possible endarterectomy 3. DM diabetic diet, Accuchecks, insulin coverage check Hgb A1c start metformin 500 mg po bid 4.HTN on Valsartan and Cardizem 5. 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 Chronic constipation on Amitiza, Colace 100 mg po BID PRN and Lactulose PRN 7. Chronic back pain pain management PRN 8. Shingles on Zovirax Po for 5 days contact isolation 9. DVT & GI prophylaxis Protonix SCD on eliquis Fioricet PRN HEADACHES Temazepam for insomnia
[2017-06-01] MEDS: Acyclovir 5% OINT 15 APPLIC/15 GM EXT SCH ×8 (00:57→21:26)
[2017-06-01] MEDS: Insulin Lispro (humaLOG) 100 Units/ml Inj SC SCH ×4 (06:57→21:26)
[2017-06-01] MEDS: AMITIZA 24 MCG PO SCH ×2 (08:58→17:02)
[2017-06-01] MEDS: Bisacodyl 5mg EC Tab PO SCH (08:59)
[2017-06-01] MEDS: Pantoprazole 40 mg EC Tab PO SCH (09:00)
--- NOTE | 2017-06-01 09:57 | CARD ---
APPROVED REPORT EKG Measurement Heart [id number] <Conclusion> Atrial fibrillation Abnormal ECG
--- NOTE | 2017-06-01 16:57 | CP.PCM.PN ---
Subjective - Date & Time of Evaluation Date of Evaluation: 06/01/17 Time of Evaluation: 16:55 - Subjective Subjective: patient seen examined bedside for s/p CVA and afib/flutter. Patient is extremely preoccupied with her heart rate, despite no tachycardia, and rate controlled, though she is in afib. Patient daughter also extremely concerned, explained that afib is usually controlled to rate below 110. HD stable NAD Objective - Vital Signs/Intake and Output Vital Signs (last 24 hours): Temp Pulse Resp BP Pulse Ox 97.0 F L 92 H 19 153/66 H 96 06/01/17 08:26 06/01/17 10:22 06/01/17 08:26 06/01/17 08:26 06/01/17 10:22 - Medications Medications: Current Medications Acetaminophen (Tylenol 325mg Tab) 650 mg PO Q6 PRN PRN Reason: Fever >100.4 F Last Admin: 05/20/17 08:50 Dose: 650 mg Acetaminophen (Tylenol 325mg Tab) 650 mg PO Q6 PRN PRN Reason: PAIN LEVEL 1-10 Last Admin: 05/23/17 11:10 Dose: 650 mg Acetaminophen/Butalbital/Caffeine (Fioricet) 1 tab PO Q4 PRN PRN Reason: Headache Last Admin: 05/31/17 09:22 Dose: 1 tab Acyclovir (Zovirax) 800 mg PO 5XD [facility]ADI PRN Reason: Protocol Last Admin: 06/01/17 12:23 Dose: 800 mg Acyclovir (Zovirax 5% Oint) 1 applic EXT Q3 [facility]I Last Admin: 06/01/17 12:23 Dose: 1 applic Apixaban (Eliquis) 5 mg PO BID [facility]I PRN Reason: Protocol Last Admin: 06/01/17 08:59 Dose: 5 mg Aspirin (Aspirin Chewable) 81 mg PO DAILY [facility] Last Admin: 06/01/17 09:00 Dose: 81 mg Atorvastatin Calcium (Lipitor) 40 mg PO HS [facility] Last Admin: 05/31/17 22:08 Dose: 40 mg Bisacodyl (Dulcolax) 5 mg PO DAILY [facility] Last Admin: 06/01/17 08:59 Dose: Not Given Calcium Carbonate (Oscal) 500 mg PO BIDWM PRN PRN Reason: Heartburn Last Admin: 05/30/17 11:30 Dose: 500 mg Diltiazem HCl (Cardizem) 120 mg PO DAILY [facility] Last Admin: 06/01/17 08:59 Dose: 120 mg Docusate Sodium (Colace) 100 mg PO BID PRN PRN Reason: Constipation Last Admin: 05/29/17 16:55 Dose: 100 mg Home Med (Amitiza) 24 mcg PO BID [facility] Last Admin: 06/01/17 08:58 Dose: Not Given Insulin Human Lispro (Humalog) 0 units SC [facility] PRN Reason: Protocol Last Admin: 06/01/17 12:22 Dose: 3 unit Lactulose (Enulose) 20 gm PO DAILY PRN PRN Reason: Constipation Last Admin: 05/21/17 09:14 Dose: 20 gm Lidocaine HCl (Xylocaine 2%) 1 applic TOP BID PRN PRN Reason: Pain, moderate (4-7) Meclizine HCl (Antivert) 25 mg PO BID [facility] Last Admin: 06/01/17 08:59 Dose: 25 mg Metformin HCl (Glucophage) 500 mg PO BIDWM [facility] Last Admin: 06/01/17 08:57 Dose: 500 mg Pantoprazole Sodium (Protonix Ec Tab) 40 mg PO DAILY [facility] Last Admin: 06/01/17 09:00 Dose: 40 mg Temazepam (Restoril) 15 mg PO HS PRN PRN Reason: Insomnia Last Admin: 05/23/17 21:54 Dose: 15 mg Valsartan (Diovan) 320 mg PO DAILY [facility] Last Admin: 06/01/17 08:59 Dose: 320 mg - Labs Labs: 05/20/17 07:00 05/20/17 07:00 - Constitutional Appears: Non-toxic, No Acute Distress - Head Exam Head Exam: ATRAUMATIC, NORMOCEPHALIC - Eye Exam Eye Exam: EOMI, Normal appearance, PERRL Pupil Exam: NORMAL ACCOMODATION - ENT Exam ENT Exam: Mucous Membranes Moist, Normal Exam - Neck Exam Neck Exam: Full ROM, Normal Inspection. absent: Lymphadenopathy - Respiratory Exam Respiratory Exam: Clear to Ausculation Bilateral, NORMAL BREATHING PATTERN - Cardiovascular Exam Cardiovascular Exam: REGULAR RHYTHM, +S1, +S2. absent: Murmur - GI/Abdominal Exam GI & Abdominal Exam: Soft, Normal Bowel Sounds. absent: Tenderness - Extremities Exam Extremities Exam: Normal Capillary Refill. absent: Calf Tenderness - Back Exam Back Exam: NORMAL INSPECTION. absent: CVA tenderness (L), CVA tenderness (R) - Neurological Exam Neurological Exam: Alert, Awake - Psychiatric Exam Psychiatric exam: Normal Affect, Normal Mood - Skin Skin Exam: Dry, Intact, Normal Color, Warm Assessment and Plan - Assessment and Plan (Free Text) Plan: 77 y/o female with PMH DM, HTN, dyslipidemia, irregular heart beat , overweight , chronic back pain , chronic constipation was diagnosed with acute ischemic stroke 05/16/[address] [facility] [place] after being admitted with dizziness, unstable gait.Patient now transferred to acute rehab for physical therapy. Doing better overall but still dizzy. Participating with PT. 05/31/17 TACHY 73-113. repeat EKG, add BB if uncontrolled. 06/01/17 patient HR controlled 90-93. 1.Acute CVA Admit to acute rehab for PT patient feels dizzy and has unstable gait, continues to have these symptoms today, imprving with PT physiatry consult appreciated on ASA, Eliquis, Statin meclizine for dizziness 2. Bilateral carotid stenosis 70 % continue anticoagulation , ASA and statin patient to follow up after discharge for possible endarterectomy 3. DM diabetic diet, Accuchecks, insulin coverage check Hgb A1c start metformin 500 mg po bid 4.HTN on Valsartan and Cardizem 5. 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 Chronic constipation on Amitiza, Colace 100 mg po BID PRN and Lactulose PRN 7. Chronic back pain pain management PRN 8. Shingles on Zovirax Po for 5 days contact isolation 9. DVT & GI prophylaxis Protonix SCD on eliquis Fioricet PRN HEADACHES Temazepam for insomnia
--- NOTE | 2017-06-01 18:25 | CP.PCM.PN ---
Subjective - Date & Time of Evaluation Date of Evaluation: 06/01/17 Time of Evaluation: 18:24 - Subjective Subjective: Patient seen in room doing ok ambulating 30' denies significant AGOSTO or CP continue current care set for d/c 06/03/17 Objective - Vital Signs/Intake and Output Vital Signs (last 24 hours): Temp Pulse Resp BP Pulse Ox 97.0 F L 92 H 19 153/66 H 96 06/01/17 08:26 06/01/17 10:22 06/01/17 08:26 06/01/17 08:26 06/01/17 10:22 - Medications Medications: Current Medications Acetaminophen (Tylenol 325mg Tab) 650 mg PO Q6 PRN PRN Reason: Fever >100.4 F Last Admin: 05/20/17 08:50 Dose: 650 mg Acetaminophen (Tylenol 325mg Tab) 650 mg PO Q6 PRN PRN Reason: PAIN LEVEL 1-10 Last Admin: 05/23/17 11:10 Dose: 650 mg Acetaminophen/Butalbital/Caffeine (Fioricet) 1 tab PO Q4 PRN PRN Reason: Headache Last Admin: 05/31/17 09:22 Dose: 1 tab Acyclovir (Zovirax) 800 mg PO 5XD [facility] PRN Reason: Protocol Last Admin: 06/01/17 17:01 Dose: 800 mg Acyclovir (Zovirax 5% Oint) 1 applic EXT Q3 [facility] Last Admin: 06/01/17 17:01 Dose: 1 applic Apixaban (Eliquis) 5 mg PO BID [facility] PRN Reason: Protocol Last Admin: 06/01/17 17:04 Dose: 5 mg Aspirin (Aspirin Chewable) 81 mg PO DAILY [facility] Last Admin: 06/01/17 09:00 Dose: 81 mg Atorvastatin Calcium (Lipitor) 40 mg PO HS [facility] Last Admin: 05/31/17 22:08 Dose: 40 mg Bisacodyl (Dulcolax) 5 mg PO DAILY [facility] Last Admin: 06/01/17 08:59 Dose: Not Given Calcium Carbonate (Oscal) 500 mg PO BIDWM PRN PRN Reason: Heartburn Last Admin: 05/30/17 11:30 Dose: 500 mg Diltiazem HCl (Cardizem) 120 mg PO DAILY [facility] Last Admin: 06/01/17 08:59 Dose: 120 mg Docusate Sodium (Colace) 100 mg PO BID PRN PRN Reason: Constipation Last Admin: 05/29/17 16:55 Dose: 100 mg Home Med (Amitiza) 24 mcg PO BID [facility] Last Admin: 06/01/17 17:02 Dose: 24 mcg Insulin Human Lispro (Humalog) 0 units SC ACHS [facility] PRN Reason: Protocol Last Admin: 06/01/17 17:02 Dose: 1 unit Lactulose (Enulose) 20 gm PO DAILY PRN PRN Reason: Constipation Last Admin: 05/21/17 09:14 Dose: 20 gm Lidocaine HCl (Xylocaine 2%) 1 applic TOP BID PRN PRN Reason: Pain, moderate (4-7) Meclizine HCl (Antivert) 25 mg PO BID [facility] Last Admin: 06/01/17 17:03 Dose: 25 mg Metformin HCl (Glucophage) 500 mg PO BIDWM [facility] Last Admin: 06/01/17 17:03 Dose: 500 mg Pantoprazole Sodium (Protonix Ec Tab) 40 mg PO DAILY [facility] Last Admin: 06/01/17 09:00 Dose: 40 mg Temazepam (Restoril) 15 mg PO HS PRN PRN Reason: Insomnia Last Admin: 05/23/17 21:54 Dose: 15 mg Valsartan (Diovan) 320 mg PO DAILY [facility] Last Admin: 06/01/17 08:59 Dose: 320 mg - Labs Labs: 05/20/17 07:00 05/20/17 07:00
[2017-06-02] MEDS: Acyclovir 5% OINT 15 APPLIC/15 GM EXT SCH ×8 (00:34→21:21)
[2017-06-02] MEDS: Insulin Lispro (humaLOG) 100 Units/ml Inj SC SCH ×4 (07:07→21:22)
[2017-06-02] MEDS: AMITIZA 24 MCG PO SCH ×2 (08:34→17:32)
[2017-06-02] MEDS: Bisacodyl 5mg EC Tab PO SCH (08:35)
[2017-06-02] MEDS: Pantoprazole 40 mg EC Tab PO SCH (08:35)
[2017-06-03] MEDS: Acyclovir 5% OINT 15 APPLIC/15 GM EXT SCH ×6 (02:08→12:05)
[2017-06-03] MEDS: Insulin Lispro (humaLOG) 100 Units/ml Inj SC SCH ×2 (06:48→12:03)
[2017-06-03] MEDS: Pantoprazole 40 mg EC Tab PO SCH (08:38)
[2017-06-03] MEDS: AMITIZA 24 MCG PO SCH (08:39)
[2017-06-03] MEDS: Bisacodyl 5mg EC Tab PO SCH (08:39)
[2017-06-03 09:03] VITALS: BP 135/58; PULSE 65; RESP 19; TEMP 97; O2SAT 97
--- NOTE | 2017-06-03 13:08 | CP.PCM.DIS ---
Provider - Provider Date of Admission: 05/19/17 19:43 Attending physician: Ralph Lopez MD Time Spent in preparation of Discharge (in minutes): 30 Diagnosis - Discharge Diagnosis (1) Afib Status: Acute (2) CVA (cerebral vascular accident) Status: Acute Hospital Course - Lab Results Lab Results: Most Recent Lab Values WBC 10.7 K/uL (4.8-10.8) 05/20/17 07:00 RBC 4.38 Mil/uL (3.80-5.20) 05/20/17 07:00 Hgb 13.2 g/dL (12.0-16.0) 05/20/17 07:00 Hct 39.3 % (34.0-47.0) 05/20/17 07:00 MCV 89.8 fl (81.0-99.0) 05/20/17 07:00 MCH 30.1 pg (27.0-31.0) 05/20/17 07:00 MCHC 33.6 g/dL (33.0-37.0) 05/20/17 07:00 RDW 14.8 % (11.5-14.5) H 05/20/17 07:00 Plt Count 154 K/uL (130-400) 05/20/17 07:00 Sodium 138 mmol/l (132-148) 05/20/17 07:00 Potassium 4.4 MMOL/L (3.6-5.0) 05/20/17 07:00 Chloride 98 mmol/L (98-107) 05/20/17 07:00 Carbon Dioxide 32 mmol/L (22-30) H 05/20/17 07:00 Anion Gap 12 (10-20) 05/20/17 07:00 BUN 18 mg/dl (7-17) H 05/20/17 07:00 Creatinine 1.0 mg/dl (0.7-1.2) 05/20/17 07:00 Est GFR ( Amer) > 60 05/20/17 07:00 Est GFR (Non-Af Amer) 54 05/20/17 07:00 POC Glucose (mg/dL) 184 mg/dL (65-110) H 06/03/17 11:57 Random Glucose 176 mg/dL (65-105) H 05/20/17 07:00 Hemoglobin A1c 7.7 % (4.2-6.5) H 05/25/17 06:50 Calcium 9.2 mg/dL (8.4-10.2) 05/20/17 07:00 - Hospital Course Hospital Course: 77 y/o female with PMH DM, HTN, dyslipidemia, irregular heart beat , overweight , chronic back pain , chronic constipation was diagnosed with acute ischemic stroke 05/16/17 at [facility] [place] after being admitted with dizziness, unstable gait.Patient now transferred to acute rehab for physical therapy. Doing better overall but still dizzy. Participating with PT. 05/31/17 TACHY 73-113. repeat EKG, add BB if uncontrolled. 06/01/17 patient HR controlled 90-93. 06/03/17 No longer tachy, HR 60s. Pt stable for discharge to [facility]. 1.Acute CVA Admit to acute rehab for PT patient feels dizzy and has unstable gait, continues to have these symptoms today, imprving with PT physiatry consult appreciated on ASA, Eliquis, Statin meclizine for dizziness 2. Bilateral carotid stenosis 70 % continue anticoagulation , ASA and statin patient to follow up after discharge for possible endarterectomy 3. DM diabetic diet, Accuchecks, insulin coverage check Hgb A1c start metformin 500 mg po bid 4.HTN on Valsartan and Cardizem 5. 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 Chronic constipation on Amitiza, Colace 100 mg po BID PRN and Lactulose PRN 7. Chronic back pain pain management PRN 8. Shingles on Zovirax Po for 5 days contact isolation 9. DVT & GI prophylaxis Protonix SCD on eliquis Fioricet PRN HEADACHES Temazepam for insomnia Discharge Exam - Head Exam Head Exam: ATRAUMATIC, NORMOCEPHALIC - Eye Exam Eye Exam: EOMI, Normal appearance, PERRL - ENT Exam ENT Exam: Mucous Membranes Moist, Normal Exam - Neck Exam Neck exam: Full Rom, Normal Inspection - Respiratory Exam Respiratory Exam: Clear to PA & Lateral, NORMAL BREATHING PATTERN - Cardiovascular Exam Cardiovascular Exam: RRR, +S1, +S2 - GI/Abdominal Exam GI & Abdominal Exam: Normal Bowel Sounds, Soft. absent: Mass, Tenderness - Extremities Exam Extremities exam: normal capillary refill, pedal pulses present - Back Exam Back exam: absent: CVA tenderness (L), CVA tenderness (R) - Neurological Exam Neurological exam: Alert, Oriented x3 - Psychiatric Exam Psychiatric exam: Normal Affect, Normal Mood - Skin Skin Exam: Dry, Warm Discharge Plan - Follow Up Plan Condition: GOOD Disposition: TRANSF TO SNF Instructions: Temazepam (By mouth), Bisacodyl (By mouth)
== END 2017-06-03 13:15 | DRG 57 ==
PROVIDERS: ADMIT Hospitalist; ATTEND Hospitalist
PROC: F07Z9FZ Gait Training/Functional Ambulation Treatment using Assistive, Adaptive, Supportive or Protective Equipment (ICD-10-PCS; principal; 2017-05-19)
PROC: F07M6FZ Therapeutic Exercise Treatment of Musculoskeletal System - Whole Body using Assistive, Adaptive, Supportive or Protective Equipment (ICD-10-PCS; 2017-05-19)
PROC: F08Z4FZ Home Management Treatment using Assistive, Adaptive, Supportive or Protective Equipment (ICD-10-PCS; 2017-05-19)
DX: I69.30 Unspecified sequelae of cerebral infarction (principal); B02.9 Zoster without complications; I48.91 Unspecified atrial fibrillation; E11.9 Type 2 diabetes mellitus without complications; I48.92 Unspecified atrial flutter; R26.81 Unsteadiness on feet; J44.9 Chronic obstructive pulmonary disease, unspecified; I65.23 Occlusion and stenosis of bilateral carotid arteries; K59.09 Other constipation; Z79.01 Long term (current) use of anticoagulants; Z82.49 Family history of ischemic heart disease and other diseases of the circulatory system; Z82.5 Family history of asthma and other chronic lower respiratory diseases; Z83.3 Family history of diabetes mellitus; Z86.73 Personal history of transient ischemic attack (TIA), and cerebral infarction without residual deficits; Z87.891 Personal history of nicotine dependence; Z88.0 Allergy status to penicillin; Z90.49 Acquired absence of other specified parts of digestive tract; Z95.5 Presence of coronary angioplasty implant and graft; E66.3 Overweight; Z68.33 Body mass index [BMI] 33.0-33.9, adult; H26.9 Unspecified cataract; G89.29 Other chronic pain; M54.9 Dorsalgia, unspecified; R00.0 Tachycardia, unspecified; E78.5 Hyperlipidemia, unspecified; F41.9 Anxiety disorder, unspecified; G47.00 Insomnia, unspecified; H40.9 Unspecified glaucoma; I10 Essential (primary) hypertension